=== PATIENT | male | born 1940 | race Caucasian/White ===

== ENCOUNTER → 2018-03-09 13:38 | Outpatient (CLI) | payer MEDICARE, OTHER, SELFPAY ==
[2018-03-09 14:04] LABS: Add Manual Diff / Slide Review NO; Basophils Percent Auto 0.8 % (0-2); Eosinophils Percent Auto 5.5 % (2-4); Hematocrit 46.9 % (41-53); Hemoglobin 15.7 g/dL (13.5-17.5); Lymphocytes Percent Auto 24.7 % (25-40); Mean Corpuscular HGB Conc 33.6 % (30-36); Mean Corpuscular Hemoglobin 29.9 PG (26-34); Mean Corpuscular Volume 89.1 fL (80-100); Monocytes Percent Auto 6.4 % (3-14); Neutrophils Absolute Auto 4300 /uL (3000-5900); Neutrophils Percent Auto 62.6 % (50-75); Platelet Count 173 X10^3/uL (150-400); Red Blood Cell Count 5.26 X10^6/uL (4.5-5.9); Red Cell Distribution Width 13.9 % (11.6-14.8); White Blood Cell Count 6.9 X10^3/uL (4.5-11.0)
[2018-03-09 14:06] LABS: Hemoglobin A1C% w Est Avg Glu 6.8 % (4.0-6.0)
[2018-03-09 14:12] LABS: Alanine Aminotransferase 24 IU/L (21-72); Albumin 4.1 g/dL (3.5-5.0); Albumin Globulin Ratio 1.4 (1.0-2.8); Alkaline Phosphatase 51 U/L (38-126); Aspartate Aminotransferase 17 IU/L (17-59); Bilirubin Total 0.8 mg/dL (0.2-1.3); Blood Urea Nitrogen 14 mg/dL (9-20); Calcium 8.9 mg/dL (8.4-10.2); Carbon Dioxide 29 mmol/L (22-32); Chloride 102 mmol/L (98-107); Estimated Glomerular Filt Rate > 60.0 mL/min (>60); Globulin 2.9 g/dL (1.7-4.1); Glucose 124 mg/dL (80-110); HEMOLYSIS 18 (0-50); Potassium 4.5 mmol/L (3.4-5.1); Sodium 140 mmol/L (137-145)
[2018-03-09 14:27] LABS: Free T4, Direct Thyroxine 1.29 ng/dL (0.78-2.19)
[2018-03-09 14:41] LABS: Thyroid Stimulating Hormone 3.47 uIU/mL (0.47-4.68)
[2018-03-09 15:44] LABS: Creatinine Urine Random 147.5 mg/dL
[2018-03-09 15:46] LABS: Microalbumi Creatinin Ratio Ur 16.2 ug/mg CR (<30); Microalbumin Urine Random 2.4 mg/dL (0-1.6)
== END ==
PROVIDERS: PCP Family Medicine; Visit Provider Family Medicine
DX: I10 Essential (primary) hypertension (principal); E03.9 Hypothyroidism, unspecified; E11.9 Type 2 diabetes mellitus without complications
CPT/HCPCS: 36415; 80053; 82043; 82570; 83036; 84439; 84443; 85025

== ENCOUNTER 2019-04-29 15:13 | Inpatient (IN) | payer MEDICARE, SELFPAY ==
[2019-04-29] VITALS (7 sets, daily range): BP systolic 137–189; BP diastolic 45–108; PULSE 65–76; RESP 14–22; TEMP 36.5; O2SAT 94–100; BMI 32.1
--- NOTE | 2019-04-29 15:20 | DI.RAD.S_ITS ---
PROCEDURE: XR RIBS RT MIN 3V W CXR 1V INDICATIONS: Fall, Rib pain TECHNIQUE: 2 views of the right ribs were acquired, along with a single view chest. COMPARISON: None. FINDINGS: Surgical changes and devices: None. Small right pneumothorax is noted. There is extensive subcutaneous right and an indwelling chest wall soft tissue gas extending to the base of neck Minimally displaced lateral right ninth rib fracture. No pleural effusion. Elsewhere, no acute consolidation. Scattered atelectasis. Right shoulder joint degeneration and calcific tendinitis. IMPRESSION: Lateral right ninth rib fracture Small right pneumothorax. Critical findings were personally telephoned and discussed with Dr. Hernandez in the emergency department at 1600 hours 04/29/19. Dictated by: Evaristo Canchola M.D. on 04/29/2019 at 15:56 Approved by: Evaristo Canchola M.D. on 04/29/2019 at 16:03
[2019-04-29 16:19] LABS: Add Manual Diff / Slide Review NO; Basophils Absolute Auto 100 /uL (0-100); Basophils Percent Auto 0.4 % (0-2); Eosinophils Absolute Auto 200 /uL (0-450); Eosinophils Percent Auto 1.5 % (2-4); Hematocrit 44.8 % (41-53); Lymphocytes Absolute Auto 1200 /uL (1100-4500); Lymphocytes Percent Auto 9.2 % (25-40); Mean Corpuscular HGB Conc 33.5 % (30-36); Mean Corpuscular Hemoglobin 30.2 PG (26-34); Mean Corpuscular Volume 90.2 fL (80-100); Monocytes Absolute Auto 500 /uL (0-900); Monocytes Percent Auto 3.5 % (3-14); Neutrophils Absolute Auto 11100 /uL (1500-7000); Neutrophils Percent Auto 85.4 % (50-75); Platelet Count 181 X10^3/uL (150-400); Red Blood Cell Count 4.97 X10^6/uL (4.5-5.9)
[2019-04-29 16:23] LABS: Prothrombin Time 11.2 SECONDS (10.1-12.7)
[2019-04-29 16:25] LABS: PTT Partial Thromboplastin Tim 26 SECONDS (26.4-36.2)
--- NOTE | 2019-04-29 16:26 | ED.FALL ---
HPI - Fall <ROBERTO Bassett - Last Filed: 04/29/19 22:32> General Chief Complaint: Fall Stated Complaint: Fell off chair Time Seen by Provider: 04/29/19 15:24 Source: patient and EMS Mode of arrival: EMS Limitations: no limitations History of Present Illness HPI Narrative: This is a 79-year-old gentleman, prior smoker, who presents to ED with significant other via ambulance complain of right-sided upper body/chest discomfort after he sustained a fall at 2:00 p.m.. Patient states he fell in the garage on a carpeted concrete area when he turned quickly while on a high stool after he had worked on a computer on R side of upper body. Patient denies hitting his head. Patient denies headache, vision change, weakness to extremities, mid cervical tenderness, tingling numbness to his extremities. Patient states had severe pain on his right side of chest after the fall which improved efficacy at this time. Denies short of breath or difficulty breathing. Patient takes baby aspirin daily and at times takes full dose of aspirin. Most of the history was obtained and informed by the patient's significant other. Related Data Home Medications Medication Instructions Recorded Confirmed aspirin 325 mg tablet 325 mg PO DAILY 02/23/18 04/29/19 naproxen sodium [Aleve] 220 mg PO .ONCE 04/29/19 04/29/19 simvastatin 40 mg PO BEDTIME 04/29/19 04/29/19 Previous Rx's Medication Instructions Recorded metoprolol tartrate 25 mg tablet 50 mg PO BID #360 tab 03/01/18 Glucose: Test Strips #100 each 03/02/18 levothyroxine 75 mcg tablet 75 mcg PO QAM #90 tab 12/08/18 acetaminophen [Tylenol] 650 mg PO QID PRN #60 cap 04/30/19 ibuprofen 800 mg PO Q6H PRN #60 tab 04/30/19 tramadol 50 mg PO Q6H PRN #30 tab 04/30/19 Allergies Allergy/AdvReac Type Severity Reaction Status Date / Time atorvastatin [ATORVASTATIN] Allergy Unknown Verified 12/08/18 14:31 Review of Systems <ROBERTO Bassett - Last Filed: 04/29/19 22:32> Review of Systems Narrative: General: Denies fever, chills, fatigue, malaise, sweats. HEENT: Denies sinus pain, ear pain, sore throat, difficulty swallowing, dizziness. Respiratory: Denies dyspnea, cough, wheezing, hemoptysis, sputum. Cardiovascular: Denies chest pain, palpitations, orthopnea, edema. Gastrointestinal: Denies nausea, vomiting, abdominal pain, diarrhea, constipation, melena. : Denies dysuria, frequency, incontinence, hematuria, urinary retention. Musculoskeletal: See HPI Skin: Denies rash, skin lesions, or other. Neurologic: Denies weakness, headache, numbness, change in speech, confusion, seizures, incoordination. Psychiatric: No concerning psychosocial issues. 12-point review of systems is negative except for those stated above. Patient History <ROBERTO Bassett - Last Filed: 04/29/19 22:32> Medical History Acquired hypothyroidism (Chronic 05/15/16) Arm fracture, right (Resolved 01/2013) Cataracts, bilateral (Acute) Clavicle fracture (Resolved) Diabetes (Chronic) Essential hypertension (Chronic 05/15/16) Hyperlipemia (Chronic) Hypertension (Chronic) Hypothyroidism (Chronic) Macular degeneration (Chronic) Myocardial ischemia (Resolved 2010) Onychodystrophy (Chronic) Peripheral vascular disease (Chronic 12/2014) Pure hypercholesterolemia (Chronic 05/15/16) Stroke (Chronic) Type 2 diabetes mellitus without complication, without long-term current use of insulin (Chronic 05/15/16) Surgical History History of open reduction and internal fixation (ORIF) procedure (Resolved) Family History Father Hypertension Mother Hypertension Social History household members: significant other Smoking Status: Former smoker alcohol intake: never Exam <ROBERTO Bassett - Last Filed: 04/29/19 22:32> Narrative Exam Narrative: GEN: Alert, oriented x 3, well appearing and nourished, and in no acute distress. Head: Normal cephalic, atraumatic. No scalp or temporal tenderness, step-offs, palpable mass or rash. EYES: Pupils are equal, round, and reactive to light and accommodation. Extraocular muscles are intact bilaterally. There is no subconjunctival hemorrhage, exudate and sclera non-icteric. ENT: Bilateral auditory canals and tympanic membranes clear. Hearing grossly intact. Nose without bleeding, purulent discharge or deviation. Facial sinuses nontender to palpate. Mucous membrane moist, no mucosal lesion. Throat without erythema, tonsillar hypertrophy or exudate. Uvula in midline, airway patent. Neck: Mild edema to right-sided neck. Trachea in midline, no step-offs, no mid cervical tenderness to palpate. No JVD without lymphadenopathy. No masses or thyroid megaly. Supple, non-tender and no meningeal signs. CARDIAC: Normal regular rate and rhythm without murmurs, gallops, or rubs. No chest wall tenderness. No peripheral edema, cyanosis or pallor. Capillary refill is less than 2 seconds. RESPIRATORY: Right lateral lower ribs pain to palpate. Lungs are clear to auscultate bilaterally. No cough, wheezes, rales, or rhonchi. No stridor, respiratory distress, increase work of breathing, or accessary muscle used. ABD: Abdomen soft, nontender and non-distended. No guarding or rebound tenderness to palpate. Bowel sounds are normal in all 4 quadrants. There is no palpable masses or organomegaly. EXT: Full painless ROM of all extremities with no loss of sensation, strength, effusion or edema. SKIN: Warm, dry, normal color for patient. No erythema, lesions or rash over visible areas. BACK: Nontender without deformity or crepitance. No flank tenderness. NEUROLOGICAL: Noted tremor on his upper extremities and neck. Alert and oriented to place, time and person. Sensation and motor function intact bilaterally. No facial droops, dysphasia. PSYCHIATRIC: No abnormal affect or abnormal behaviors noted during the examination. Initial Vital Signs Initial Vital Signs: Vital Signs Temperature 97.7 F 04/29/19 15:18 Pulse Rate 67 04/29/19 15:18 Respiratory Rate 22 04/29/19 15:18 Blood Pressure 137/108 H 04/29/19 15:18 Pulse Oximetry 97 04/29/19 15:18 <Zay Hernandez DO - Last Filed: 05/02/19 07:04> Initial Vital Signs Initial Vital Signs: Vital Signs Temperature 97.7 F 10/25/19 15:18 Pulse Rate 67 04/29/19 15:18 Respiratory Rate 22 04/29/19 15:18 Blood Pressure 137/108 H 04/29/19 15:18 Pulse Oximetry 97 04/29/19 15:18 Scores <[facility] Filed: 04/29/19 22:32> GCS Nakul coma scale eye opening: Spontaneous Nakul coma scale verbal response: Orientated Nakul coma scale motor response: Obey commands Nakul coma scale total score: 15 Nexus Score for C-Spine Focal Neurologic deficit present: No Midline spinal tenderness present: No Altered level of conciousness present: No Intoxication present: No Distracting Injury Present: Yes Nexus Criteria for C-spine: 1 Course <[facility] Filed: 04/29/19 22:32> Orders Ordered: Discontinued Medications Acetaminophen (Tylenol) 650 mg PO Q6HR PRN PRN Reason: As Needed for Fever/Mild Pain Enoxaparin Sodium (Lovenox) 40 mg SUBCUT DAILY [facility] Admin: 05/01/19 09:12 Dose: 40 mg Documented by: Admin: 04/30/19 08:56 Dose: 40 mg Documented by: GIAN Gabapentin (Neurontin) 100 mg PO TID [facility] Admin: 05/01/19 09:12 Dose: 100 mg Documented by: Admin: 04/30/19 20:08 Dose: 100 mg Documented by: Admin: 04/30/19 14:56 Dose: Not Given Documented by: Admin: 04/30/19 08:57 Dose: 100 mg Documented by: Admin: 04/29/19 20:53 Dose: 100 mg Documented by: MAE Ibuprofen (Advil) 600 mg PO Q6HR [facility] Last Admin: 05/01/19 12:21 Dose: 600 mg Documented by: Admin: 05/01/19 06:05 Dose: 600 mg Documented by: Admin: 05/01/19 00:27 Dose: Not Given Documented by: Admin: 04/30/19 20:07 Dose: 600 mg Documented by: Admin: 04/30/19 12:08 Dose: 600 mg Documented by: Admin: 04/30/19 05:41 Dose: 600 mg Documented by: Admin: 04/30/19 00:25 Dose: Not Given Documented by: DAILY Levothyroxine Sodium (Synthroid) 75 mcg PO 0600 [facility] Last Admin: 05/01/19 06:05 Dose: 75 mcg Documented by: Admin: 04/30/19 05:41 Dose: 75 mcg Documented by: DAILY Lidocaine (Lidoderm) 1 each TOP NOW ONE Stop: 04/29/19 17:53 Last Admin: 04/29/19 18:05 Dose: 1 each Documented by: VITO Lidocaine (Lidoderm) 1 each TOP DAILY [facility] Last Admin: 05/01/19 09:13 Dose: 1 each Documented by: Admin: 04/30/19 08:56 Dose: 1 each Documented by: GIAN Metoprolol Tartrate (Lopressor) 50 mg PO BID [facility] Last Admin: 05/01/19 09:13 Dose: 50 mg Documented by: Admin: 04/30/19 20:08 Dose: 50 mg Documented by: Admin: 04/30/19 08:56 Dose: 50 mg Documented by: Admin: 04/29/19 20:53 Dose: 50 mg Documented by: MAE Morphine Sulfate (Morphine) 2 mg IV Q2HR PRN PRN Reason: Pain, Moderate (4-6) Stop: 04/29/19 23:59 Last Admin: 04/29/19 18:10 Dose: 2 mg Documented by: VITO Ondansetron HCl (Zofran) 4 mg IV Q6HR PRN PRN Reason: Nausea And Vomiting Stop: 04/29/19 23:59 Last Admin: 04/29/19 18:10 Dose: 4 mg Documented by: VITO Oxycodone HCl (Percolone) 5 mg PO Q6HR PRN PRN Reason: Pain, Moderate (4-6) Last Admin: 04/30/19 04:29 Dose: 5 mg Documented by: Admin: 04/29/19 22:02 Dose: 5 mg Documented by: MAE Simvastatin (Zocor) 40 mg PO BEDTIME [facility] Last Admin: 04/30/19 20:08 Dose: 40 mg Documented by: Admin: 04/29/19 20:53 Dose: 40 mg Documented by: MAE Consultations Consultation #1: Dr. Hyatt-modified trauma, 1 R rib fracture and Pneumonthorax 10% with subcue emphysema on R neck and R side chest Time: 16:29 Vital Signs Vital signs: Vital Signs - 8 hr 04/29/19 15:18 04/29/19 16:19 04/29/19 17:03 Temperature 97.7 F Pulse Rate 67 70 65 Respiratory Rate 22 18 18 Blood Pressure 137/108 H Blood Pressure [Right Arm] 180/45 H 177/58 H Pulse Oximetry 97 99 100 04/29/19 17:30 04/29/19 18:00 04/29/19 19:00 Temperature 97.7 F Pulse Rate 74 70 76 Respiratory Rate 15 14 20 Blood Pressure 182/55 H Blood Pressure [Right Arm] 189/56 H 179/54 H Pulse Oximetry 100 100 100 <Zay Hernandez DO - Last Filed: 05/02/19 07:04> Orders Ordered: Discontinued Medications Acetaminophen (Tylenol) 650 mg PO Q6HR PRN PRN Reason: As Needed for Fever/Mild Pain Enoxaparin Sodium (Lovenox) 40 mg SUBCUT DAILY [facility] Last Admin: 05/01/19 09:12 Dose: 40 mg Documented by: Admin: 04/30/19 08:56 Dose: 40 mg Documented by: GIAN Gabapentin (Neurontin) 100 mg PO TID [facility] Last Admin: 05/01/19 09:12 Dose: 100 mg Documented by: Admin: 04/30/19 20:08 Dose: 100 mg Documented by: Admin: 04/30/19 14:56 Dose: Not Given Documented by: Admin: 04/30/19 08:57 Dose: 100 mg Documented by: Admin: 04/29/19 20:53 Dose: 100 mg Documented by: MAE Ibuprofen (Advil) 600 mg PO Q6HR [facility] Last Admin: 05/01/19 12:21 Dose: 600 mg Documented by: Admin: 05/01/19 06:05 Dose: 600 mg Documented by: Admin: 05/01/19 00:27 Dose: Not Given Documented by: Admin: 04/30/19 20:07 Dose: 600 mg Documented by: Admin: 04/30/19 12:08 Dose: 600 mg Documented by: Admin: 04/30/19 05:41 Dose: 600 mg Documented by: Admin: 04/30/19 00:25 Dose: Not Given Documented by: DAILY Levothyroxine Sodium (Synthroid) 75 mcg PO 0600 [facility] Last Admin: 05/01/19 06:05 Dose: 75 mcg Documented by: Admin: 04/30/19 05:41 Dose: 75 mcg Documented by: DAILY Lidocaine (Lidoderm) 1 each TOP NOW ONE Stop: 04/29/19 17:53 Last Admin: 04/29/19 18:05 Dose: 1 each Documented by: VITO Lidocaine (Lidoderm) 1 each TOP DAILY [facility] Last Admin: 05/01/19 09:13 Dose: 1 each Documented by: Admin: 04/30/19 08:56 Dose: 1 each Documented by: GIAN Metoprolol Tartrate (Lopressor) 50 mg PO BID [facility] Last Admin: 05/01/19 09:13 Dose: 50 mg Documented by: Admin: 04/30/19 20:08 Dose: 50 mg Documented by: Admin: 04/30/19 08:56 Dose: 50 mg Documented by: Admin: 04/29/19 20:53 Dose: 50 mg Documented by: MAE Morphine Sulfate (Morphine) 2 mg IV Q2HR PRN PRN Reason: Pain, Moderate (4-6) Stop: 04/29/19 23:59 Last Admin: 04/29/19 18:10 Dose: 2 mg Documented by: VITO Ondansetron HCl (Zofran) 4 mg IV Q6HR PRN PRN Reason: Nausea And Vomiting Stop: 04/29/19 23:59 Last Admin: 04/29/19 18:10 Dose: 4 mg Documented by: VITO Oxycodone HCl (Percolone) 5 mg PO Q6HR PRN PRN Reason: Pain, Moderate (4-6) Last Admin: 04/30/19 04:29 Dose: 5 mg Documented by: Admin: 04/29/19 22:02 Dose: 5 mg Documented by: MAE Simvastatin (Zocor) 40 mg PO BEDTIME [facility] Last Admin: 04/30/19 20:08 Dose: 40 mg Documented by: Admin: 04/29/19 20:53 Dose: 40 mg Documented by: MAE Vital Signs Vital signs: Vital Signs - 8 hr 04/29/19 15:18 04/29/19 16:19 04/29/19 17:03 Temperature 97.7 F Pulse Rate 67 70 65 Respiratory Rate 22 18 18 Blood Pressure 137/108 H Blood Pressure [Right Arm] 180/45 H 177/58 H Pulse Oximetry 97 99 100 04/29/19 17:30 04/29/19 18:00 04/29/19 19:00 Temperature 97.7 F Pulse Rate 74 70 76 Respiratory Rate 15 14 20 Blood Pressure 182/55 H Blood Pressure [Right Arm] 189/56 H 179/54 H Pulse Oximetry 100 100 100 MDM - Fall <Rakan CotterROBERTO - Last Filed: 04/29/19 22:32> Differential Diagnosis Differential diagnosis: Likely other (Chest contusion, pneumothorax, rib fracture) Medical Records Attestation: I reviewed the patient's medical records. Lab Data Attestation: I reviewed the patient's lab results. Result diagrams: 04/30/19 11:37 04/29/19 16:10 Labs: Lab Results 04/29/19 04/29/19 04/29/19 Range/Units 16:10 16:10 16:10 WBC 13.0 H (4.5-11.0) X10^3/uL RBC 4.97 (4.5-5.9) X10^6/uL Hgb 15.0 (13.5-17.5) g/dL Hct 44.8 (41-53) % MCV 90.2 (80-100) fL MCH 30.2 (26-34) PG MCHC 33.5 (30-36) % RDW 14.0 (11.6-14.8) % Plt Count 181 (150-400) X10^3/uL Neut % (Auto) 85.4 H (50-75) % Lymph % (Auto) 9.2 L (25-40) % [place] % (Auto) 3.5 (3-14) % Eos % (Auto) 1.5 L (2-4) % Baso % (Auto) 0.4 (0-2) % Neut # (Auto) 18450 H (8990-0476) /uL Lymph # (Auto) 1200 (7286-1635) /uL [place] # (Auto) 500 (0-900) /uL Eos # (Auto) 200 (0-450) /uL Baso # (Auto) 100 (0-100) /uL PT 11.2 (10.1-12.7) SECONDS INR 1.0 (0.9-1.3) APTT 26 L (26.4-36.2) SECONDS Sodium 137 (137-145) mmol/L Potassium 4.2 (3.4-5.1) mmol/L Chloride 101 (98-107) mmol/L Carbon Dioxide 25 (22-32) mmol/L BUN 15 (9-20) mg/dL Creatinine 1.00 (0.66-1.25) mg/dL Estimated GFR > 60.0 (>60) mL/min BUN/Creatinine Ratio 15.0 (6-22) Glucose 209 H (80-110) mg/dL Calcium 8.8 (8.4-10.2) mg/dL Total Bilirubin 0.8 (0.2-1.3) mg/dL AST 25 (17-59) IU/L ALT 23 (21-72) IU/L Alkaline Phosphatase 66 (38-126) U/L Total Protein 7.2 (6.3-8.2) g/dL Albumin 4.1 (3.5-5.0) g/dL Globulin 3.1 (1.7-4.1) g/dL Albumin/Globulin Ratio 1.3 (1.0-2.8) Lipase 197 (23-300) U/L Ethyl Alcohol < 10 ( - 10) mg/dL Blood Type Antibody Screen 04/29/19 04/29/19 Range/Units 16:10 18:40 WBC 17.9 H (4.5-11.0) X10^3/uL RBC 4.84 (4.5-5.9) X10^6/uL Hgb 14.6 (13.5-17.5) g/dL Hct 43.6 (41-53) % MCV 90.2 (80-100) fL MCH 30.2 (26-34) PG MCHC 33.5 (30-36) % RDW 14.1 (11.6-14.8) % Plt Count 176 (150-400) X10^3/uL Neut % (Auto) 90.4 H (50-75) % Lymph % (Auto) 4.9 L (25-40) % [place] % (Auto) 4.3 (3-14) % Eos % (Auto) 0.2 L (2-4) % Baso % (Auto) 0.2 (0-2) % Neut # (Auto) 63655 H (6810-0665) /uL Lymph # (Auto) 900 L (7756-3568) /uL [place] # (Auto) 800 (0-900) /uL Eos # (Auto) 0 (0-450) /uL Baso # (Auto) 0 (0-100) /uL PT (10.1-12.7) SECONDS INR (0.9-1.3) APTT (26.4-36.2) SECONDS Sodium (137-145) mmol/L Potassium (3.4-5.1) mmol/L Chloride (98-107) mmol/L Carbon Dioxide (22-32) mmol/L BUN (9-20) mg/dL Creatinine (0.66-1.25) mg/dL Estimated GFR (>60) mL/min BUN/Creatinine Ratio (6-22) Glucose (80-110) mg/dL Calcium (8.4-10.2) mg/dL Total Bilirubin (0.2-1.3) mg/dL AST (17-59) IU/L ALT (21-72) IU/L Alkaline Phosphatase (38-126) U/L Total Protein (6.3-8.2) g/dL Albumin (3.5-5.0) g/dL Globulin (1.7-4.1) g/dL Albumin/Globulin Ratio (1.0-2.8) Lipase (23-300) U/L Ethyl Alcohol ( - 10) mg/dL Blood Type B Positive Antibody Screen Negative Imaging Data Chest x-ray: Radiologist's impression: [address] [address] XRay Report Signed Patient: Ric Perry EMR#: [id number] : 1940Acct:[id number] Age/Sex: 79 / MDate of Service: 04/29/19 Loc: ED Accession Number: [id number] Procedure: XR ribs RT min 3V w CXR1V Ordering Provider: Zay Hernandez D.O. PROCEDURE: XR RIBS RT MIN 3V W CXR 1V INDICATIONS: Fall, Rib pain TECHNIQUE: 2 views of the right ribs were acquired, along with a single view chest. COMPARISON: None. FINDINGS: Surgical changes and devices: None. Small right pneumothorax is noted. There is extensive subcutaneous right and an indwelling chest wall soft tissue gas extending to the base of neck Minimally displaced lateral right ninth rib fracture. No pleural effusion. Elsewhere, no acute consolidation. Scattered atelectasis. Right shoulder joint degeneration and calcific tendinitis. IMPRESSION: Lateral right ninth rib fracture Small right pneumothorax. Critical findings were personally telephoned and discussed with Dr. Hernandez in the emergency department at 1600 hours 04/29/19. Dictated by: Evaristo Canchola M.D. on 04/29/2019 at 15:56 Approved by: Evaristo Canchola M.D. on 04/29/2019 at 16:03 ECG Data Attestation: I personally reviewed and interpreted this ECG as follows: Interpretation: Sinus rhythm rate at 66. Non specific T wave abnormalty. The significant changes from previous EKG. MDM Narrative Medical decision making narrative: This is a 79-year-old gentleman who was brought in by and EMS after he sustained a fall off a high stool and landed on the right side of his upper body. Patient/significant other reports the fall was accidental when he turned too quickly while sitting on a chair. Patient takes daily baby aspirin and occasional full dose of aspirin. Patient has significant pain at the time of injury on his right side chest/ribs. Patient denied short of breath, dizziness, or chest pain prior falling or after the fall. Chest x-ray was obtained any showed a minimally displaced lateral right 9th rib fracture. She had small right pneumothorax of about 10% according to radiologist's phone report to Dr. Hernandez. Patient also had small subcutaneous emphysema on his right-sided neck and right-sided upper body. X-ray also showed scattered atelectasis. Oxygen by nasal cannula at 4 L was administered as the treatment for small pneumothorax. Modified trauma was called and Dr. Hyatt was consulted with the findings. EKG showed normal sinus rhythm rate at 66 with nonspecific T wave abnormaltywithout significant change from previous EKG. Head and neck CT was not obtained due to patient did not hit his head, is alert oriented. He denied loss of conscious, headache, vision change, nausea or vomiting. Patient and spouse declined pain medication several times, although patient complains of pain with movement. Several times patient and significant other was informed that this is very likely due to rib fracture and offered lidocaine patch. There was leukocytosis of 17.9 with elevated neutrophil as 90.4 with unremarkable chemistry. At this time, etiology for leukocytosis is not clear. Dr. Hyatt presents to ED for patient evaluation and he kindly accepted the patient's care. <Zay Hernandez, DO - Last Filed: 05/02/19 07:04> Lab Data Labs: Lab Results 04/29/19 04/29/19 04/29/19 Range/Units 16:10 16:10 16:10 WBC 13.0 H (4.5-11.0) X10^3/uL RBC 4.97 (4.5-5.9) X10^6/uL Hgb 15.0 (13.5-17.5) g/dL Hct 44.8 (41-53) % MCV 90.2 (80-100) fL MCH 30.2 (26-34) PG MCHC 33.5 (30-36) % RDW 14.0 (11.6-14.8) % Plt Count 181 (150-400) X10^3/uL Neut % (Auto) 85.4 H (50-75) % Lymph % (Auto) 9.2 L (25-40) % [place] % (Auto) 3.5 (3-14) % Eos % (Auto) 1.5 L (2-4) % Baso % (Auto) 0.4 (0-2) % Neut # (Auto) 07074 H (1499-4247) /uL Lymph # (Auto) 1200 (4188-6430) /uL [place] # (Auto) 500 (0-900) /uL Eos # (Auto) 200 (0-450) /uL Baso # (Auto) 100 (0-100) /uL PT 11.2 (10.1-12.7) SECONDS INR 1.0 (0.9-1.3) APTT 26 L (26.4-36.2) SECONDS Sodium 137 (137-145) mmol/L Potassium 4.2 (3.4-5.1) mmol/L Chloride 101 (98-107) mmol/L Carbon Dioxide 25 (22-32) mmol/L BUN 15 (9-20) mg/dL Creatinine 1.00 (0.66-1.25) mg/dL Estimated GFR > 60.0 (>60) mL/min BUN/Creatinine Ratio 15.0 (6-22) Glucose 209 H (80-110) mg/dL Calcium 8.8 (8.4-10.2) mg/dL Total Bilirubin 0.8 (0.2-1.3) mg/dL AST 25 (17-59) IU/L ALT 23 (21-72) IU/L Alkaline Phosphatase 66 (38-126) U/L Total Protein 7.2 (6.3-8.2) g/dL Albumin 4.1 (3.5-5.0) g/dL Globulin 3.1 (1.7-4.1) g/dL Albumin/Globulin Ratio 1.3 (1.0-2.8) Lipase 197 (23-300) U/L Ethyl Alcohol < 10 ( - 10) mg/dL Blood Type Antibody Screen 04/29/19 04/29/19 Range/Units 16:10 18:40 WBC 17.9 H (4.5-11.0) X10^3/uL RBC 4.84 (4.5-5.9) X10^6/uL Hgb 14.6 (13.5-17.5) g/dL Hct 43.6 (41-53) % MCV 90.2 (80-100) fL MCH 30.2 (26-34) PG MCHC 33.5 (30-36) % RDW 14.1 (11.6-14.8) % Plt Count 176 (150-400) X10^3/uL Neut % (Auto) 90.4 H (50-75) % Lymph % (Auto) 4.9 L (25-40) % [place] % (Auto) 4.3 (3-14) % Eos % (Auto) 0.2 L (2-4) % Baso % (Auto) 0.2 (0-2) % Neut # (Auto) 83606 H (2256-6490) /uL Lymph # (Auto) 900 L (6815-1137) /uL [place] # (Auto) 800 (0-900) /uL Eos # (Auto) 0 (0-450) /uL Baso # (Auto) 0 (0-100) /uL PT (10.1-12.7) SECONDS INR (0.9-1.3) APTT (26.4-36.2) SECONDS Sodium (137-145) mmol/L Potassium (3.4-5.1) mmol/L Chloride (98-107) mmol/L Carbon Dioxide (22-32) mmol/L BUN (9-20) mg/dL Creatinine (0.66-1.25) mg/dL Estimated GFR (>60) mL/min BUN/Creatinine Ratio (6-22) Glucose (80-110) mg/dL Calcium (8.4-10.2) mg/dL Total Bilirubin (0.2-1.3) mg/dL AST (17-59) IU/L ALT (21-72) IU/L Alkaline Phosphatase (38-126) U/L Total Protein (6.3-8.2) g/dL Albumin (3.5-5.0) g/dL Globulin (1.7-4.1) g/dL Albumin/Globulin Ratio (1.0-2.8) Lipase (23-300) U/L Ethyl Alcohol ( - 10) mg/dL Blood Type B Positive Antibody Screen Negative Discharge Plan Departure Patient Disposition: Admitted as Observation Clinical Impression: Pneumothorax Qualifiers: Pneumothorax type: traumatic Encounter type: initial encounter Qualified Code(s): S27.0XXA - Traumatic pneumothorax, initial encounter Closed rib fracture Qualifiers: Encounter type: initial encounter Rib fracture type: single rib Laterality: right Qualified Code(s): S22.31XA - Fracture of one rib, right side, initial encounter for closed fracture Fall Qualifiers: Encounter type: initial encounter Qualified Code(s): W19.XXXA - Unspecified fall, initial encounter Discharge Date/Time: 04/29/19 18:51 Admit Date/Time: 04/29/19 19:00 Admit Provider: Be Hyatt <Zay Hernandez DO - Last Filed: 05/02/19 07:04> Sign Out Provider Sign Out Attestation: I was available for consultation during this patient's emergency department visit. This chart is signed by myself for administrative purposes only. I did not have direct contact with this patient during this visit. They were seen independently by the APC.
[2019-04-29 16:30] LABS: Alanine Aminotransferase 23 IU/L (21-72); Albumin 4.1 g/dL (3.5-5.0); Albumin Globulin Ratio 1.3 (1.0-2.8); Alkaline Phosphatase 66 U/L (38-126); Aspartate Aminotransferase 25 IU/L (17-59); Bilirubin Total 0.8 mg/dL (0.2-1.3); Blood Urea Nitrogen 15 mg/dL (9-20); Calcium 8.8 mg/dL (8.4-10.2); Carbon Dioxide 25 mmol/L (22-32); Chloride 101 mmol/L (98-107); Estimated Glomerular Filt Rate > 60.0 mL/min (>60); Ethanol (ETOH) < 10 mg/dL; Globulin 3.1 g/dL (1.7-4.1); Glucose 209 mg/dL (80-110); HEMOLYSIS 16 (0-50); Lipase 197 U/L (23-300); Potassium 4.2 mmol/L (3.4-5.1); Sodium 137 mmol/L (137-145); Total Protein 7.2 g/dL (6.3-8.2)
[2019-04-29] MEDS: LIDOCAINE PATCH 1 EACH ADH..PATCH TOP (18:05)
[2019-04-29] MEDS: MORPHINE 2 MG/ML INJ IV (18:10)
[2019-04-29] MEDS: ONDANSETRON 4 MG/2 ML INJ IV (18:10)
--- NOTE | 2019-04-29 18:20 | P.HP_ITS ---
History of Present Illness History of Present Illness Date Patient Seen: 04/29/19 Time Patient Seen: 18:20 Chief complaint: Fell off chair Narrative: This is 70 year old male who sustained a ground level fall today. He fell off a stool at home landing onto his right chest. Did not strike his head had no loss of consciousness. His not on anticoagulation. He noticed some right-sided chest pain and then presented to the emergency room for evaluation. Chest x-ray demonstrates 1 right-sided rib fracture and a small pneumothorax. Complaint of right pleuritic pain with deep inspiration. Speaking in normal sentences. Medical history is significant for history of stroke hypertension hypothyroidism and diet controlled diabetes. Patient History Medical History Acquired hypothyroidism (Chronic 05/15/16) Arm fracture, right (Resolved 01/2013) Cataracts, bilateral (Acute) Clavicle fracture (Resolved) Diabetes (Chronic) Essential hypertension (Chronic 05/15/16) Hyperlipemia (Chronic) Hypertension (Chronic) Hypothyroidism (Chronic) Macular degeneration (Chronic) Myocardial ischemia (Resolved 2010) Onychodystrophy (Chronic) Peripheral vascular disease (Chronic 12/2014) Pure hypercholesterolemia (Chronic 05/15/16) Stroke (Chronic) Type 2 diabetes mellitus without complication, without long-term current use of insulin (Chronic 05/15/16) Surgical History History of open reduction and internal fixation (ORIF) procedure (Resolved) Family & Social History Family History Father Hypertension Mother Hypertension Tobacco & Substance use: Smoking Status Former smoker Meds Home Medications and Allergies Home Medications Medication Instructions Recorded Confirmed Type aspirin 325 mg tablet 325 mg PO DAILY 02/23/18 04/29/19 History metoprolol tartrate 25 mg tablet 50 mg PO BID #360 tab 03/01/18 04/29/19 Rx Glucose: Test Strips #100 each 03/02/18 04/29/19 Rx levothyroxine 75 mcg tablet 75 mcg PO QAM #90 tab 12/08/18 04/29/19 Rx naproxen sodium [Aleve] 220 mg PO .ONCE 04/29/19 04/29/19 History simvastatin 40 mg PO BEDTIME 04/29/19 04/29/19 History Allergies Allergy/AdvReac Type Severity Reaction Status Date / Time atorvastatin [ATORVASTATIN] Allergy Unknown Verified 12/08/18 14:31 Review of Systems Review of Systems Narrative: A complete review of systems is negative except as noted in the HPI Exam Vital Signs (past 8 hours): - 04/29/19 15:18 04/29/19 16:19 04/29/19 17:03 Temperature 97.7 F Pulse Rate 67 70 65 Respiratory Rate 22 18 18 Blood Pressure 137/108 H Blood Pressure [Right Arm] 180/45 H 177/58 H Pulse Oximetry 97 99 100 04/29/19 17:30 04/29/19 18:00 Temperature Pulse Rate 74 70 Respiratory Rate 15 14 Blood Pressure Blood Pressure [Right Arm] 189/56 H 179/54 H Pulse Oximetry 100 100 Oxygen Delivery Method Nasal Cannula Oxygen Flow Rate 4 Narrative Exam Narrative: General-no acute distress, well nourished HEENT-moist mucous membranes, no scleral icterus Neck-supple, scant subcutaneous oxygen Chest- non labored respirations, clear to auscultation bilaterally Cardiac-regular rate no peripheral edema Abdomen-soft, nontender, non distended Extremities-warm, well perfused Neurological-alert and oriented Objective Labs Result Diagrams: 04/29/19 16:10 04/29/19 16:10 Labs: Laboratory Results - last 24 hr 04/29/19 04/29/19 04/29/19 16:10 16:10 16:10 WBC 13.0 H RBC 4.97 Hgb 15.0 Hct 44.8 MCV 90.2 MCH 30.2 MCHC 33.5 RDW 14.0 Plt Count 181 Neut % (Auto) 85.4 H Lymph % (Auto) 9.2 L [place] % (Auto) 3.5 Eos % (Auto) 1.5 L Baso % (Auto) 0.4 Neut # (Auto) 00477 H Lymph # (Auto) 1200 [place] # (Auto) 500 Eos # (Auto) 200 Baso # (Auto) 100 PT 11.2 INR 1.0 APTT 26 L Sodium 137 Potassium 4.2 Chloride 101 Carbon Dioxide 25 BUN 15 Creatinine 1.00 Estimated GFR > 60.0 BUN/Creatinine Ratio 15.0 Glucose 209 H Calcium 8.8 Total Bilirubin 0.8 AST 25 ALT 23 Alkaline Phosphatase 66 Total Protein 7.2 Albumin 4.1 Globulin 3.1 Albumin/Globulin Ratio 1.3 Lipase 197 Ethyl Alcohol < 10 Blood Type Antibody Screen 04/29/19 16:10 WBC RBC Hgb Hct MCV MCH MCHC RDW Plt Count Neut % (Auto) Lymph % (Auto) [place] % (Auto) Eos % (Auto) Baso % (Auto) Neut # (Auto) Lymph # (Auto) [place] # (Auto) Eos # (Auto) Baso # (Auto) PT INR APTT Sodium Potassium Chloride Carbon Dioxide BUN Creatinine Estimated GFR BUN/Creatinine Ratio Glucose Calcium Total Bilirubin AST ALT Alkaline Phosphatase Total Protein Albumin Globulin Albumin/Globulin Ratio Lipase Ethyl Alcohol Blood Type B Positive Antibody Screen Negative Assessment & Plan Assessment and plan (1) Pneumothorax: Current visit: Yes Status: Acute Assessment & Plan narrative: This is a 79-year-old male status post ground level fall no loss of consciousness no head strike, hemodynamically stable breathing well on 2 L of oxygen. Traumatic injuries -right pneumothorax. Small less than 10% breathing comfortably on 2 L of nasal cannula. No indication for chest tube at this time. Will repeat chest x-ray in a.m. for re-evaluation -right rib fracture-pain control with oxycodone some ibuprofen Tylenol and lidocaine patch. Admission to trauma for observation. -diabetic diet -p Lovenox and SCDs for DVT prophylaxis -PT OT evaluation -anticipate discharge home tomorrow if pneumothorax not worsened and pain is adequately controlled with oral medication.
[2019-04-29 19:35] LABS: Add Manual Diff / Slide Review NO; Basophils Absolute Auto 0 /uL (0-100); Basophils Percent Auto 0.2 % (0-2); Eosinophils Absolute Auto 0 /uL (0-450); Eosinophils Percent Auto 0.2 % (2-4); Hematocrit 43.6 % (41-53); Hemoglobin 14.6 g/dL (13.5-17.5); Lymphocytes Absolute Auto 900 /uL (1100-4500); Lymphocytes Percent Auto 4.9 % (25-40); Mean Corpuscular HGB Conc 33.5 % (30-36); Mean Corpuscular Hemoglobin 30.2 PG (26-34); Mean Corpuscular Volume 90.2 fL (80-100); Monocytes Absolute Auto 800 /uL (0-900); Monocytes Percent Auto 4.3 % (3-14); Neutrophils Absolute Auto 16200 /uL (1500-7000); Neutrophils Percent Auto 90.4 % (50-75); Platelet Count 176 X10^3/uL (150-400); Red Blood Cell Count 4.84 X10^6/uL (4.5-5.9); Red Cell Distribution Width 14.1 % (11.6-14.8); White Blood Cell Count 17.9 X10^3/uL (4.5-11.0)
[2019-04-29] MEDS: METOPROLOL IR 25 MG TABLET 50 MG PO (20:53)
[2019-04-29] MEDS: GABAPENTIN 100 MG CAPSULE PO (20:53)
[2019-04-29] MEDS: SIMVASTATIN 40 MG TABLET PO (20:53)
[2019-04-29] MEDS: OXYCODONE IR 5 MG TABLET PO (22:02)
[2019-04-30] VITALS (9 sets, daily range): BP systolic 131–165; BP diastolic 59–81; PULSE 63–78; RESP 17–20; TEMP 36.4–36.9; O2SAT 94–99
[2019-04-30] MEDS: OXYCODONE IR 5 MG TABLET PO (04:29)
[2019-04-30] MEDS: LEVOTHYROXINE 75 MCG TABLET PO (05:41)
[2019-04-30] MEDS: IBUPROFEN 600 MG TABLET PO ×3 (05:41→20:07)
--- NOTE | 2019-04-30 06:00 | DI.RAD.S_ITS ---
PROCEDURE: XR CHEST 1V INDICATIONS: R pneumothorax TECHNIQUE: One view of the chest was acquired. COMPARISON: Merged with [facility], CHEST 1 VIEW, 12/11/2014, 19:47. Merged with [facility], CHEST 1 VIEW, 02/10/2011, 12:13. Merged with [facility], XR RIBS RT MIN 3V W CXR 1V, 04/29/2019, 15:37. FINDINGS: Surgical changes and devices: There is a suture seen overlying the right distal clavicle. Lungs and pleura: There is a small right-sided pneumothorax seen, which is minimally improved compared to the prior examination. No left-sided pneumothorax is seen. Low lung volumes are noted. This causes a crowded appearance to the lung markings and limits evaluation. Mediastinum: The cardiac contours are within normal limits. The aorta demonstrates calcification and tortuosity. Bones and chest wall: At least one right-sided rib fracture can be seen. Right-sided soft tissue gas is seen. No suspicious bony lesions. Age-appropriate bony degenerative changes are seen. Right shoulder calcific tendinopathy can be seen. IMPRESSION: Right-sided pneumothorax, which is decreased in size compared to the prior examination. Right-sided soft tissue gas. Right-sided rib fracture. Dictated by: Akira Yoder M.D. on 04/30/2019 at 7:01 Approved by: Akira Yoder M.D. on 04/30/2019 at 7:04
[2019-04-30] MEDS: METOPROLOL IR 25 MG TABLET 50 MG PO ×2 (08:56→20:08)
[2019-04-30] MEDS: ENOXAPARIN 40 MG/0.4 ML SYRINGE SUBCUT (08:56)
[2019-04-30] MEDS: LIDOCAINE PATCH 1 EACH ADH..PATCH TOP (08:56)
[2019-04-30] MEDS: GABAPENTIN 100 MG CAPSULE PO ×2 (08:57→20:08)
--- NOTE | 2019-04-30 09:37 | PT.IIE ---
Current Diagnoses Pneumothorax, unspecified (04/29/19) Surgical History (Last Reviewed 04/29/19 @ 18:24 by Be Hyatt MD) History of open reduction and internal fixation (ORIF) procedure (Resolved) Medical History (Last Reviewed 04/29/19 @ 18:24 by Be Hyatt MD) Acquired hypothyroidism (Chronic 05/15/16) Arm fracture, right (Resolved 01/2013) Cataracts, bilateral (Acute) Clavicle fracture (Resolved) Diabetes (Chronic) Essential hypertension (Chronic 05/15/16) Hyperlipemia (Chronic) Hypertension (Chronic) Hypothyroidism (Chronic) Macular degeneration (Chronic) Myocardial ischemia (Resolved 2010) Onychodystrophy (Chronic) Peripheral vascular disease (Chronic 12/2014) Pure hypercholesterolemia (Chronic 05/15/16) Stroke (Chronic) Type 2 diabetes mellitus without complication, without long-term current use of insulin (Chronic 05/15/16) Physical Therapy Inpatient Evaluation/Re-Eval M1 PT/OT-IP Prior Functional Status Start: 04/30/19 12:53 Freq: NEEDED Status: Active Protocol: Document 04/30/19 09:37 AB (Rec: 04/30/19 13:13 AB [id number]) Medical Review Prior Functional Status Medical History Reviewed Yes Communication able to make needs known but with confusion Mobility and Gait pt stated that he is independent with all mobilities and ambulation without AD Prior Functional Level (Other details) pt stated that he lives alone but OT called person to notify and significant other stated that she lives with him for years. Social History Household Members significant other Living Arrangements House Number of Floors (Floors) One Floor Number of Stairs To Enter/Railing? no steps to enter Home Environment Standard Height Toilet,Tub/ Shower Home Equipment Front Wheel Walker,Hand Held Shower,Grab Bars Near Toilet, Grab Bars In Shower M2 PT-IP Current Condition Start: 04/30/19 12:53 Freq: NEEDED Status: Active Protocol: Document 04/30/19 09:37 AB (Rec: 04/30/19 13:13 AB [id number]) Physical Therapy Current Condition Current Condition Evaluation Date 04/30/19 Treatment Diagnosis R 9th rib fx; pneumothorax; difficulty in walking Onset Date 04/29/19 Precautions Other Precautions falls M3 PT-IP Subjective Start: 04/30/19 12:53 Freq: NEEDED Status: Active Protocol: Document 04/30/19 09:37 AB (Rec: 04/30/19 13:13 AB [id number]) Subjective Physical Therapy Visit Type Type Initial Evaluation Visit Start Time 09:37 Visit Stop Time 10:03 Total Visit Minutes 26 Number of MUD MIXER Visits 0 Physical Therapy Visit Comments Patient Comments pt agreeable to do PT Therapy Pain Assessment Pain When Pain Assessed During Mobility Location right chest Intensity 10 Scale Used Numeric (1 - 10) Pain Management Techniques Re-positioning,Timing of Activity with Medications M4 PT-IP Mobility and Gait Start: 04/30/19 12:53 Freq: NEEDED Status: Active Protocol: Document 04/30/19 09:37 AB (Rec: 04/30/19 13:13 AB [id number]) PT-Bed Mobility Assessment Supine to Sit Supine to Sit Standby Assistance,1 Person Assistance Sit to Supine Sit to Supine Standby Assistance,1 Person Assistance PT-Transfer Assessment Sit to and From Stand Sit to and from Stand Minimal Assistance,Moderate Assistance,1 Person Assistance ,Use of Upper Extremities Equipment Transfer Assistive Device Gait Belt,Front Wheeled Walker Orthotic/Prosthetic Devices or Brace: No Transfers Transfer Destination Bed,Chair Transfer Technique pt ambulated using FWW Transfer Ability Level of Assist Minimal Assistance,Moderate Assistance,1 Person Assistance ,Use of Upper Extremities Comments Mobility Comments pt found sitting on chair. completed sit to stand from chair x 3 attempts before being able to complete task requiring min to mod A and max cues. pt ambulated ~ 12 ft to the bed using FWW min A and cues. completed bed mobility supine <>sit SBA. pt ambulated more in room using FWW and agreed to sit up on chair afterwards. positioned on chair. call light and table placed within reach. Gait Assessment Gait Gait Assistance Required: Minimum Assistance Distance (Feet) 20 Able to Maintain Weight Bearing Status Yes During Gait Assistive Devices Assistive Device Gait Belt,Front Wheeled Walker Orthotic/Prosthetic Devices or Brace: No Gait Deviations General Gait Pattern Antalgic,Decreased Stride Length,Decreased Feet Clearance,Flexed Trunk Factors Limiting Gait Function Factors Limiting Gait Function Decreased Activity Tolerance, Decreased Strength,Difficulty Following Directions,Limited Range of Motion,Pain,Poor Balance,Poor Safety Awareness Comments Gait Comments pt presents with unsteady gait with (+) LOB x 2 requiring min A for recovery. PT-Balance Assessment Sitting Balance and Reactions Static Sitting Balance Ability Good Dynamic Sitting Balance Ability Good Standing Balance and Reactions Static Standing Balance Ability Fair Dynamic Standing Balance Ability Fair Device Used FWW M5 PT-IP Objective Assessments Start: 04/30/19 12:53 Freq: NEEDED Status: Active Protocol: Document 04/30/19 09:37 AB (Rec: 04/30/19 13:13 AB [id number]) Orientation Orientation/Cognition Level of Alertness Alert Orientation Name,Age,Birthday,Place, Situation Safety Awareness Decreased Safety Awareness Memory Description Short Term Impaired,Hot Metal Charger Impaired Comments pt with confusion Gross Range of Motion Lower Extremity ROM Assessment Within Functional Limits Strength Lower Extremity Strength Assessment Bilaterally Impaired Hip 3+/5 Knee 3+/5 Muscle Tone Muscle Tone WNL Yes M6 PT-IP Treatment Start: 04/30/19 12:53 Freq: NEEDED Status: Active Protocol: Document 04/30/19 09:37 AB (Rec: 04/30/19 13:13 AB [id number]) Physical Therapy Treatment Education Education Provided Safety M7 PT-IP Assessment and Plan Start: 04/30/19 12:53 Freq: NEEDED Status: Active Protocol: Document 04/30/19 09:37 AB (Rec: 04/30/19 13:13 AB [id number]) PT Summary Assessment and Plan Potential Rehabilitation Potential Fair Status of Condition at Evaluation Evolving Summary Impairments Pain,ROM,Strength,Balance, Coordination,Sensation,Tone, Cognition,Bed Mobility, Transfers,Gait,Activity Tolerance Assessment Summary pt requiring min to mod A with transfers and min A with ambulation using FWW. pt presents with decrease activity tolerance and decrease safety awareness. pt will require 24/7 assist at home and at this time will require SNF rehab to improve strength and mobility. Goals Bed Mobility Goal Independent Transfer Goal Standby Assistance,Front Wheeled Walker Gait Goal Standby Assistance,Front Wheel Walker Gait Distance 200 Days to Meet Goals 10 Frequency of Treatment Frequency Of Treatment Once a Day Treatment Plan Physical Therapy Treatment Plan Bed Mobility Training,Transfer Training,Gait Training, Therapeutic Exercise,Balance Retraining,Discharge Planning, Hot or Cold Pack,Neuromuscular Re-ed,Coordination Retraining ,Manual Therapy Recommendations To Nursing Amount of Assist Needed 1 Person Assist Discharge Recommendations PT Discharge Recommendations Home with 24/7 Assist,Home Health,SNF Rehab Other Discharge Recommendations SNF rehab vs 24/7 assist at home / HHPT
--- NOTE | 2019-04-30 10:42 | OT.IP.TRT ---
Current Diagnoses Pneumothorax, unspecified (04/29/19) Occupational Therapy Treatment Note M2 OT-IP Current Condition Start: 04/30/19 13:00 Freq: Status: Active Protocol: Document 04/30/19 10:42 [facility] (Rec: 04/30/19 13:34 [facility] [id number]) Occupational Therapy Current Condition Current Condition Evaluation Date 04/30/19 Treatment Diagnosis GLF, rib fracture-lateral 9th, small pneumothorax, decreased mobility Diagnosis Onset Date 04/29/19 Weight Bearing Status Weight Bearing Status Weight Bear as Tolerated M3 OT- IP Subjective and Pain Start: 04/30/19 13:00 Freq: Status: Active Protocol: Document 04/30/19 10:42 [facility] (Rec: 04/30/19 13:34 [facility] [id number]) OT- Subjective Occupational Therapy Visit Type Type Initial Evaluation Visit Start Time 10:42 Visit Stop Time 11:24 Total Visit Minutes 42 Occupational Therapy Visit Comments Patient Comments Pt agreeable to do OT eval. Called pt's significant other afterwards as pt a bit confused and unable to recall if someone lives with him. Patient/Caregiver Goals Pt wanting to go home. OT Pain Assessment Pain When Pain Assessed At Rest Pain Present Pain Present Denied Pain M4 OT- IP ADL's Start: 04/30/19 13:00 Freq: Status: Active Protocol: Document 04/30/19 10:42 [facility] (Rec: 04/30/19 13:34 [facility] [id number]) OT ADL-Grooming Comments OT Grooming Comments Pt refusing to try to do grooming at this time. OT ADL-Dressing General Eval Lower Body Dressing Ability Standby Assistance Comments OT Dressing Comments Pt needing ELIEL for balance while pt able to doff /neida brief over his hips. OT ADL-Toileting General Evaluation Toileting Ability Standby Assistance Comments OT Toileting Comments While sitting on the toilet able to reach back to wipe. OT ADL-Bathing Comments OT Bathing Comments Pt not wanting to shower at this time. M5 OT- IP IADL's Start: 04/30/19 13:00 Freq: Status: Active Protocol: Document 04/30/19 10:42 [facility] (Rec: 04/30/19 13:34 [facility] [id number]) OT-Instrumental Activities of Daily Living Home Safety Awareness Home Safety Comments Pt at this time decreased home safety and was not able to identify to call 911 is case of chest pain. Pt states to call the hospital. Pt also not sure what to do in case of toilet flooding. CAlled pt's significant other and she insisted pt completely independent with needs and very sensitive to pain medications and feels that is why he is not thinking well. M6 OT- IP Functional Cognition Start: 04/30/19 13:00 Freq: Status: Active Protocol: Document 04/30/19 10:42 [facility] (Rec: 04/30/19 13:34 [facility] [id number]) Cognitive Factors Limiting Selfcare Function Cognitive Ability Level of Alertness Alert,Confusional State Patient Orientation Name,Month,Year,Situation Attention Span Ability Capable of Focused Attention, Capable of Sustained Attention Ability to Follow Commands Able to Follow One Step Commands Memory Description Short Term Impaired Safety Awareness Underestimates Need for Assistance Problem Solving Ability Unable to Identify Errors, Needs Assist to Identify Solutions Executive Function Ability Unable to Organize Plans, Unable to Remember Details Cognitive Comments Cognitive Assessment Comments Pt states at [facility] when asked where he is. Pt not able to state that his significant other lives with him even though pe significant other has lived with him for 20 years. Pt keeps insisting that he will be fine when he goes home. Pt having word finding difficulties and unable to say the name for areas touched on his arm for light touch. OT- Vision and Hearing OT- Hearing Assessment OT- Hearing Assessment Hearing Impaired OT- Vision Assessment Vision History Blurred Vision Occular Pursuits Impaired Horizontal Vision Assessment Comments Pt states wears glasses and does not have them here. Pt unable to read the clock . M7 OT- IP Mobility and Balance Start: 04/30/19 13:00 Freq: Status: Active Protocol: Document 04/30/19 10:42 [facility] (Rec: 04/30/19 13:34 [facility] [id number]) OT-Transfer Assessment Sit to and From Stand Sit to and from Stand Moderate Assistance,1 Person Assistance Transfers Transfer Ability Moderate Assistance,1 Person Assistance Technique Transfer Destination Chair,Toilet Transfer Technique Stand Step Pivot Devices Transfer Assistive Devices Gait Belt,Front Wheeled Walker Comments Mobility Comments Pt having great difficulty to come to stand and leaning to the left and needing MODA to stand to FWW. Pt not wanting to use FWW and starting to walk to the bathroom and holding to doorway and losing his balance to the left and needing MODA from falling over . Pt heavy use of grab bar to sit and therapist insisted on use of FWW to get back to the recliner. O2 on RA started while sitting 88% and after up on his feet 91% and after getting back to the recliner 93%. OT- Balance Assessment Sitting Balance and Reactions Static Sitting Balance Ability Normal Dynamic Sitting Balance Ability Good Standing Balance and Reactions Static Standing Balance Ability Poor Dynamic Standing Balance Ability Poor M8 OT- IP Objective Assessments Start: 04/30/19 13:00 Freq: Status: Active Protocol: Document 04/30/19 10:42 [facility] (Rec: 04/30/19 13:34 [facility] [email or web address]) OT Gross Range of Motion Upper Extremity Range of Motion Assessment Within Functional Limits OT Strength Comments Strength Comments WFL LUE, not able to test RUE due to rib pain. OT- Coordination Assessment Upper Extremity Finger to Nose Test Within Functional Limits Comments Coordination Comments Increased time for finger to thumb opposition. OT-Muscle Tone Assessment Muscle Tone WNL Yes OT Sensation Assessment Comments Summary Comments Decreased sensation for left elbow and wrist for light touch. M9 OT- IP Assessment and Plan Start: 04/30/19 13:00 Freq: Status: Active Protocol: Document 04/30/19 10:42 [facility] (Rec: 04/30/19 13:34 [facility] [email or web address]) OT Summary Assessment and Plan Potential Rehabilitation Potential Good Analytic Complexity at Evaluation Low Summary OT Impairments Pain,Balance,Functional Cognition,Functional Mobility, Dressing,Toileting,Bathing, Toilet Transfers,Shower Transfers Progress Towards Goals Slow Progress due to Pain,Slow Progress due to Medical Issues,Slow Progress due to Activity Tolerance,Slow Progress due to Cognition Assessment Summary Pt low complexity and main barriers are pain, decreased balance, decreased awareness of midline, decreased safety awareness, and now needing assist for ADL's and functional mobility. Pt's significant other when called feels that the pain medications is making him confused. Pending her ability to care for pt , at this time recommending skilled rehab. Goals Self-Feeding Goal Independent Grooming Goal Independent Dressing Goal Independent Toileting Goal Independent Bathing Goal Standby Assistance Toilet Transfer Goal Independent Shower Transfer Goal Standby Assistance Patient/Caregiver Education Goal Caregiver Independent Assisting Patient Days to Meet Goals 5 Frequency of Treatment Frequency Of Treatment Once a Day Treatment Plan OT Treatment Plan ADL Training,Functional Cognition Training,Functional Mobility,Patient/Family Education,Discharge Planning Discharge Recommendations OT Discharge Recommendations SNF Rehab
--- NOTE | 2019-04-30 11:13 | PM.PN.1 ---
Subjective Subjective Date Patient Seen: 04/30/19 Time Patient Seen: 11:13 Interval history: No acute overnight events. Pain is well controlled, breathing comfortably on room air. Per staff patient is unsteady on his feet. Exam Vital Signs (past 8 hours): - 04/30/19 04:00 04/30/19 08:00 Temperature 97.5 F L 98.5 F Pulse Rate 65 78 Respiratory Rate 18 20 Blood Pressure 165/69 H 131/67 Pulse Oximetry 98 96 Oxygen Delivery Method Room Air Oxygen Flow Rate 0 Narrative Exam Narrative: General adult male alert oriented no acute distress. Chest nonlabored respirations no audible wheezing. Objective Labs Result Diagrams: 04/29/19 18:40 04/29/19 16:10 Labs: Laboratory Results - last 24 hr 04/29/19 04/29/19 04/29/19 16:10 16:10 16:10 WBC 13.0 H RBC 4.97 Hgb 15.0 Hct 44.8 MCV 90.2 MCH 30.2 MCHC 33.5 RDW 14.0 Plt Count 181 Neut % (Auto) 85.4 H Lymph % (Auto) 9.2 L [place] % (Auto) 3.5 Eos % (Auto) 1.5 L Baso % (Auto) 0.4 Neut # (Auto) 33664 H Lymph # (Auto) 1200 [place] # (Auto) 500 Eos # (Auto) 200 Baso # (Auto) 100 PT 11.2 INR 1.0 APTT 26 L Sodium 137 Potassium 4.2 Chloride 101 Carbon Dioxide 25 BUN 15 Creatinine 1.00 Estimated GFR > 60.0 BUN/Creatinine Ratio 15.0 Glucose 209 H Calcium 8.8 Total Bilirubin 0.8 AST 25 ALT 23 Alkaline Phosphatase 66 Total Protein 7.2 Albumin 4.1 Globulin 3.1 Albumin/Globulin Ratio 1.3 Lipase 197 Ethyl Alcohol < 10 Blood Type Antibody Screen 04/29/19 04/29/19 16:10 18:40 WBC 17.9 H RBC 4.84 Hgb 14.6 Hct 43.6 MCV 90.2 MCH 30.2 MCHC 33.5 RDW 14.1 Plt Count 176 Neut % (Auto) 90.4 H Lymph % (Auto) 4.9 L [place] % (Auto) 4.3 Eos % (Auto) 0.2 L Baso % (Auto) 0.2 Neut # (Auto) 19366 H Lymph # (Auto) 900 L [place] # (Auto) 800 Eos # (Auto) 0 Baso # (Auto) 0 PT INR APTT Sodium Potassium Chloride Carbon Dioxide BUN Creatinine Estimated GFR BUN/Creatinine Ratio Glucose Calcium Total Bilirubin AST ALT Alkaline Phosphatase Total Protein Albumin Globulin Albumin/Globulin Ratio Lipase Ethyl Alcohol Blood Type B Positive Antibody Screen Negative Assessment & Plan Assessment & Plan narrative: 79-year-old man hx of CVA status post ground level fall with a small right pneumothorax and single rib fracture. Pain is well controlled on current pain regimen continue as written. Pneumothorax improving. Was 10 % and todays CXR demonstrates interval improvement. -Incentive spirometry -FU PT/OT and SW regarding disposition -pLovenox and SCDs for VTE prophylaxis. Quality VTE Deep Vein Thrombosis/Pulmonary Embolism Present on Admission: No
--- NOTE | 2019-04-30 11:21 | PC.NURSE ---
Addendum entered by Eli Wolfe R.N. 04/30/19 13:55: MS/PAIN/RESP- when pt SO Deonna arrived, she started taking off oxygen, stating she wanted him dressed and ready to go home, explained that PT and OT did not think pt safe yet as he has poor balance and safety knowledge, continues to appear confused and when stood w/gait belt and fww, pt had sudden lean to l side before he was cued to stand straight, discussed that pt did have oxycodone at 430 am and since then we have limited to ibuprofen and a lidocaine patch, had Chantell from [facility] come down and speak to pt and SO and it was agreed that pt will stay and continue with strengthening this afternoon, pt given IS and demonstrated correct use to 2500. Original Note: AM NOTE - pt awakens easily for breakfast, speech is clear with a delayed response, oriented to hospital and does remember fall at home in the garage, states he feels good and slept well, does wince with discomfort when mobilizing, assisted up to dangle position to assist w/urinal, using gait belt and fww, pt is initially wobbly and leans to one side, able take steps to chair, alarm set, placed lidocaine patch, bs clear upper lobes, coarse crackles mid r to lower, ra 95-97%.
[2019-04-30 12:02] LABS: Add Manual Diff / Slide Review NO; Basophils Absolute Auto 0 /uL (0-100); Basophils Percent Auto 0.4 % (0-2); Eosinophils Absolute Auto 100 /uL (0-450); Eosinophils Percent Auto 0.8 % (2-4); Hematocrit 43.8 % (41-53); Hemoglobin 14.9 g/dL (13.5-17.5); Lymphocytes Absolute Auto 1100 /uL (1100-4500); Lymphocytes Percent Auto 10.3 % (25-40); Mean Corpuscular HGB Conc 33.9 % (30-36); Mean Corpuscular Hemoglobin 30.4 PG (26-34); Mean Corpuscular Volume 89.7 fL (80-100); Monocytes Absolute Auto 600 /uL (0-900); Monocytes Percent Auto 5.9 % (3-14); Neutrophils Absolute Auto 8800 /uL (1500-7000); Neutrophils Percent Auto 82.6 % (50-75); Platelet Count 176 X10^3/uL (150-400); Red Blood Cell Count 4.89 X10^6/uL (4.5-5.9); Red Cell Distribution Width 14.2 % (11.6-14.8); White Blood Cell Count 10.6 X10^3/uL (4.5-11.0)
--- NOTE | 2019-04-30 13:25 | CM.DANOTE ---
DCP: Case received, EMR reviewed and met with patient. Was able to also meet with significant other, Deonna, who resides with patient. Introduced self and role. Was able to complete DCP assessment/template with information currently available. Patient is a 79 year old male who admitted yesterday evening to the care of the hospitalist/surgical team. PCP: Dr. Hernandez. Payer: confirmed: Medicare. Patient came to the hospital via ambulance secondary to a ground level fall in his garage. Patient had been in his garage, and sustained a fall off of his high stool. He inherited a small pneumothorax. Met with patient, noted some confusion, initially stated that he lived alone. Significant other, Deonna, came in. She explained that she lives with patient, and has been with him and has been with him for 20 years. She mentioned that he is independent, drives, but is sensitive to oxycontin. Patient does not use any DME supplies. Patient is unsteady at this time. Deonna was wanting him to go home today, but reassured her that surgeon wants patient to stay another day, since he is unsteady, and to see how he does after medication is out of his system. She was agreeable to that, but is hoping he can go home tomorrow. Gave her a business card with this upper caser's phone number on it with any questions. P: DCP to continue to follow closely. Patient should be able to go home when he is medically stable. Landy Jones RN/Car Retarder Operator
[2019-04-30] MEDS: SIMVASTATIN 40 MG TABLET PO (20:08)
[2019-05-01 04:30] VITALS: BP 152/80; PULSE 75; RESP 18; TEMP 36.9; O2SAT 97
[2019-05-01] MEDS: LEVOTHYROXINE 75 MCG TABLET PO (06:05)
[2019-05-01] MEDS: IBUPROFEN 600 MG TABLET PO ×2 (06:05→12:21)
[2019-05-01 07:00] VITALS: O2SAT 95
[2019-05-01 08:00] VITALS: BP 141/65; PULSE 77; RESP 16; TEMP 37.1; O2SAT 92
[2019-05-01] MEDS: ENOXAPARIN 40 MG/0.4 ML SYRINGE SUBCUT (09:12)
[2019-05-01] MEDS: GABAPENTIN 100 MG CAPSULE PO (09:12)
[2019-05-01] MEDS: METOPROLOL IR 25 MG TABLET 50 MG PO (09:13)
[2019-05-01] MEDS: LIDOCAINE PATCH 1 EACH ADH..PATCH TOP (09:13)
--- NOTE | 2019-05-01 09:36 | PT.IPTN ---
Current Diagnoses Pneumothorax, unspecified (04/29/19) Physical Therapy Treatment Note M2 PT-IP Current Condition Start: 04/30/19 12:53 Freq: NEEDED Status: Active Protocol: Document 04/30/19 09:37 AB (Rec: 04/30/19 13:13 AB [id number]) Physical Therapy Current Condition Current Condition Evaluation Date 04/30/19 Treatment Diagnosis R 9th rib fx; pneumothorax; difficulty in walking Onset Date 04/29/19 Precautions Other Precautions falls M3 PT-IP Subjective Start: 04/30/19 12:53 Freq: NEEDED Status: Active Protocol: Document 05/01/19 09:18 CLB (Rec: 05/01/19 09:47 CLB [id number]) Subjective Physical Therapy Visit Type Type Treatment Note Visit Start Time 09:18 Visit Stop Time 09:36 Total Visit Minutes 18 Number of CLEARING SUPERVISOR Visits 1 Physical Therapy Visit Comments Patient Comments pt agreeable to do PT with encouragement. Therapy Pain Assessment Pain When Pain Assessed During Mobility M4 PT-IP Mobility and Gait Start: 04/30/19 12:53 Freq: NEEDED Status: Active Protocol: Document 05/01/19 09:18 CLB (Rec: 05/01/19 09:47 CLB [id number]) PT-Transfer Assessment Sit to and From Stand Sit to and from Stand Minimal Assistance,Moderate Assistance,1 Person Assistance ,Use of Upper Extremities Equipment Transfer Assistive Device Gait Belt,Front Wheeled Walker Orthotic/Prosthetic Devices or Brace: No Transfer Ability Level of Assist Minimal Assistance,Moderate Assistance,1 Person Assistance ,Use of Upper Extremities Comments Mobility Comments Pt in chair was able to stand Min A requiring cues for hand placement. Pt also required cues for chair approach as pt set FWW aside and tried to sit in chair before it was safe. Pt instructed to keep walker with him until he had safelty backed up to chair. Gait Assessment Gait Gait Assistance Required: Minimum Assistance,Moderate Assistance,1 Person Assist Distance (Feet) 20 Able to Maintain Weight Bearing Status Yes During Gait Assistive Devices Assistive Device Gait Belt,Front Wheeled Walker Orthotic/Prosthetic Devices or Brace: No Gait Deviations General Gait Pattern Antalgic,Decreased Stride Length,Decreased Feet Clearance,Flexed Trunk Factors Limiting Gait Function Factors Limiting Gait Function Decreased Activity Tolerance, Decreased Strength,Difficulty Following Directions,Limited Range of Motion,Pain,Poor Balance,Poor Safety Awareness Comments Gait Comments Pt continues to be unsteady with gait requiring Mod A to correct LOB x3. M5 PT-IP Objective Assessments Start: 04/30/19 12:53 Freq: NEEDED Status: Active Protocol: Document 04/30/19 09:37 AB (Rec: 04/30/19 13:13 AB [id number]) Orientation Orientation/Cognition Level of Alertness Alert Orientation Name,Age,Birthday,Place, Situation Safety Awareness Decreased Safety Awareness Memory Description Short Term Impaired,Shelter Impaired Comments pt with confusion Gross Range of Motion Lower Extremity ROM Assessment Within Functional Limits Strength Lower Extremity Strength Assessment Bilaterally Impaired Hip 3+/5 Knee 3+/5 Muscle Tone Muscle Tone WNL Yes M6 PT-IP Treatment Start: 04/30/19 12:53 Freq: NEEDED Status: Active Protocol: Document 05/01/19 09:48 CLB (Rec: 05/01/19 09:48 CLB [id number]) Physical Therapy Treatment Exercises Exercises Ankle Pumps,Gluteal Sets,Quad Sets Education Education Provided Safety M7 PT-IP Assessment and Plan Start: 04/30/19 12:53 Freq: NEEDED Status: Active Protocol: Document 05/01/19 09:18 CLB (Rec: 05/01/19 09:47 CLB [id number]) PT Summary Assessment and Plan Summary Impairments Pain,ROM,Strength,Balance, Coordination,Sensation,Tone, Cognition,Bed Mobility, Transfers,Gait,Activity Tolerance Assessment Summary Pt continues to require Min- Mod A for transfers and gait with LOB x3 during gait requiring Mod A to prevent fall to left. At this time pt would benefit from SNF rehab to inprove activity tolerance and safety. Pt left in chair with alarm on and all other needs within reach. Goals Bed Mobility Goal Independent Transfer Goal Standby Assistance,Front Wheeled Walker Gait Goal Standby Assistance,Front Wheel Walker Gait Distance 200 Days to Meet Goals 10 Frequency of Treatment Frequency Of Treatment Once a Day Treatment Plan Physical Therapy Treatment Plan Bed Mobility Training,Transfer Training,Gait Training, Therapeutic Exercise,Balance Retraining,Discharge Planning, Hot or Cold Pack,Neuromuscular Re-ed,Coordination Retraining ,Manual Therapy Recommendations To Nursing Amount of Assist Needed 1 Person Assist Discharge Recommendations PT Discharge Recommendations SNF Rehab Other Discharge Recommendations SNF rehab vs 26/01 assist at home / HHPT
--- NOTE | 2019-05-01 11:00 | DI.RAD.S_ITS ---
PROCEDURE: XR CHEST 1V INDICATIONS: f/u pneumothorax TECHNIQUE: One view of the chest was acquired. COMPARISON: [facility], CR, XR RIBS RT MIN 3V W CXR 1V, 04/29/2019, 15:37. [facility], CR, XR CHEST 1V, 04/30/2019, 5:38. FINDINGS: Surgical changes and devices: There is a suture seen overlying the right distal clavicle. Lungs and pleura: There is a small right-sided pneumothorax seen, which is not significantly changed compared to the prior examination. No left-sided pneumothorax. No pleural effusion. No focal infiltrates are seen. Mediastinum: Mediastinal contours appear normal. Heart size is normal. Atherosclerotic calcification of the aortic arch is noted. Bones and chest wall: Right-sided soft tissue gas is seen. Right shoulder calcific tendinopathy can be seen. Age-appropriate bony degenerative changes are seen. One right-sided rib fracture can be seen. IMPRESSION: Small right-sided pneumothorax, stable from the prior day. Right sided soft tissue gas is seen. One right-sided rib fracture again seen. Dictated by: Akira Yoder M.D. on 05/01/2019 at 10:21 Approved by: Akira Yoder M.D. on 05/01/2019 at 10:23
--- NOTE | 2019-05-01 13:09 | PC.NURSE ---
AM NOTE - pt is alert, oriented, speech pattern is delayed, does not remember to use call light and needs cues to mobilize, initially denies pain, when prompted, states discomfort w/deep breathing r rib area, placed lidocaine patch, resting hand tremor noted, when assisted up from chair to use fww, pt initially has poor balance and leans back and to the side, then able to straighten w/cues and ambul to br, ret to chair w/chair alarm set.
--- NOTE | 2019-05-01 13:51 | PM.DS.1 ---
History of Present Illness History of Present Illness Date Patient Seen: 05/01/19 Time Patient Seen: 13:51 Chief complaint: Fell off chair Narrative: The patient is a gentleman who was admitted after ground level fall for a pneumothorax and a fractured rib. Discharge Providers Provider Date of admission: 04/29/19 19:00 Discharge Date: 05/01/19 Primary care physician: Mt Hernandez MD Consults: 04/29/19 18:14 Consult to Care Management Routine Comment: Consult to Occupational Therapy Evaluate & Treat Comment: Physician Instructions: Evaluate and treat Consult to Physical Therapy Evaluate & Treat Comment: Physician Instructions: Evaluate and Treat Discharge provider: Celso Villatoro MD Summary Hospital Course Discharge Diagnosis: One traumatic pneumothorax acute Fracture of 1 rib acute (right 9th rib) Hypertension chronic Hypothyroidism chronic Hyperlipidemia chronic History of cardiac ischemia History of stroke Type 2 diabetes mellitus controlled with diet. Chronic. Obesity with a BMI of 33 Hospital Course: The patient was admitted to the hospital and observed. His lung partially re-expanded with simple observation. There was no increase in his pneumothorax and his symptoms of pain resolved. He was continued on his pre-admission medication. His pain was controlled Naprosyn. Status at Discharge Cognitive/behavioral status at discharge: at baseline, confused Functional status at discharge: independent ambulation (A little unsteady on his feet which apparently is chronic) Overall status at discharge: patient is progressing back to baseline Time Spent with Patient Time spent: Less than 30 minutes Exam Vital Signs (past 8 hours): - 05/01/19 07:00 05/01/19 08:00 Temperature 98.8 F Pulse Rate 77 Respiratory Rate 16 Blood Pressure 141/65 H Pulse Oximetry 95 92 Oxygen Delivery Method Room Air Oxygen Flow Rate 0 Narrative Exam Narrative: Lungs are clear. Decreased breath sounds in the right lung. Excellent air movement however. He is able to take a deep breath without difficulty and draws at least 2000 cc on incentive spirometer. He does not wince in pain at all. There is no significant chest wall tenderness. Abdomen is protuberant soft. Heart distant tones regular rate and rhythm. Objective Labs Result Diagrams: 04/30/19 11:37 04/29/19 16:10 Discharge Plan Discharge Plan Patient Disposition: Home Discharge comment: You have a rib fracture in her right 9th rib. It will take weeks to heal. If you develop increasing shortness of breath or a chronic cough for pneumonia like symptoms with a fever please come to the emergency room. Otherwise you should follow up with Dr. Hyatt in his office. You should also make an appointment to see her family physician. Discharge Med Rec/Prescriptions Prescriptions: New tramadol 50 mg tablet 50 mg PO Q6H PRN (Reason: pain) Qty: 30 RF: 0 ibuprofen 200 mg tablet 800 mg PO Q6H PRN (Reason: pain) Qty: 60 RF: 0 acetaminophen [Tylenol] 325 mg capsule 650 mg PO QID PRN (Reason: pain) Qty: 60 RF: 0 Continued aspirin 325 mg tablet 325 mg PO DAILY RF: 0 metoprolol tartrate 25 mg tablet 50 mg PO BID Qty: 360 RF: 3 (DME) Glucose: Test Strips 0 .Route .MEDSUPPLY Qty: 100 RF: 3 levothyroxine [Synthroid] 75 mcg tablet 75 mcg PO QAM Qty: 90 RF: 3 simvastatin 80 mg tablet 40 mg PO BEDTIME RF: 0 naproxen sodium [Aleve] 220 mg Capsule 220 mg PO .ONCE RF: 0 Follow up/Referrals: Mt Hernandez MD [Primary Care Provider] - Be Hyatt MD [Physician] - (Call and make an appointment to see Dr. Hyatt. You should see him in about a week. If you have problems please call our office as well.) Provider Discharge Instructions Diet: Regular Activity: No travel by air for 1 month. No driving while on narcotics. No driving until your doctor give you permission. Skin/Wound/Dressing Care Report to your healthcare provider any signs of infection, such as:: chills, fever and increased pain Visit Report/Discharge Packet Instructions: DI for Pneumothorax, Tramadol Visit Report Forms: Patient Portal/API, Stroke Signs & Symptoms Discharge Data Primary Care Provider: Mt Hernandez Quality VTE Deep Vein Thrombosis/Pulmonary Embolism Present on Admission: No
--- NOTE | 2019-05-01 14:49 | PC.NURSE ---
Patient discharged to home with Dee, caregiver/significant other. Went over discharge instructions and medications with Dee and patient. Questions answered. Rx for tramadol given to Dee. Patient and Dee aware to call Dr Elmore office tomorrow and schedule a follow up appt, phone number given. Patient taken downstairs via , Dee had to call a cab for a ride for herself and patient home. Patient assisted into cab, had all belongings.
== END 2019-05-01 15:10 | disposition home or self-care (01) | DRG 200 ==
LOC: ED 18:52 → AC 04-30 08:56
PROVIDERS: Admitting Provider Surgery; Emergency Provider Nurse Practitioner Family; PCP Family Medicine; Visit Provider Surgery
DX: S27.0XXA Traumatic pneumothorax, initial encounter (principal); S22.31XA Fracture of one rib, right side, initial encounter for closed fracture; I10 Essential (primary) hypertension; E03.9 Hypothyroidism, unspecified; E11.9 Type 2 diabetes mellitus without complications; E78.5 Hyperlipidemia, unspecified; E66.9 Obesity, unspecified; W18.30XA Fall on same level, unspecified, initial encounter; Z68.33 Body mass index [BMI] 33.0-33.9, adult; Z86.73 Personal history of transient ischemic attack (TIA), and cerebral infarction without residual deficits
CPT/HCPCS: 36415; 71045; 71101; 80053; 80320; 82962; 83690; 85025; 85610; 85730; 86850; 86900; 86901; 93005; 96374; 96375; 97116; 97162; 97165; 99221; 99232; 99238; 99283; 99285; J1650; J2270; J2405

== ENCOUNTER → 2019-12-22 14:51 | Outpatient (CLI) | payer MEDICARE, SELFPAY ==
[2019-04-29 19:15] VITALS: BMI 32.1
[2019-12-22 15:52] LABS: Free T3, Triiodothyronine Free 2.83 pg/mL (2.77-5.27); Free T4, Direct Thyroxine 1.31 ng/dL (0.78-2.19)
[2019-12-22 16:06] LABS: Thyroid Stimulating Hormone 3.11 uIU/mL (0.47-4.68)
== END ==
PROVIDERS: PCP Nurse Practitioner; Referring Provider Nurse Practitioner; Visit Provider Nurse Practitioner
DX: E03.9 Hypothyroidism, unspecified (principal)
CPT/HCPCS: 36415; 84439; 84443; 84481

== ENCOUNTER → 2021-01-11 16:15 | Outpatient (CLI) | payer MEDICARE, SELFPAY ==
[2019-04-29 19:15] VITALS: BMI 32.1
[2021-01-11 18:20] LABS: Alanine Aminotransferase 21 IU/L (<50); Albumin 3.6 g/dL (3.5-5.0); Albumin Globulin Ratio 1.2 (1.0-2.8); Alkaline Phosphatase 59 U/L (38-126); Aspartate Aminotransferase 28 IU/L (17-59); BUN Creatinine Ratio 16.9 (6-22); Bilirubin Total 0.6 mg/dL (0.2-1.3); Blood Urea Nitrogen 14 mg/dL (9-20); Calcium 8.9 mg/dL (8.4-10.2); Carbon Dioxide 28 mmol/L (22-32); Chloride 103 mmol/L (98-107); Cholesterol 129 mg/dL (140-199); Estimated Glomerular Filt Rate > 60.0 mL/min (>60); Globulin 3.1 g/dL (1.7-4.1); Glucose 116 mg/dL (80-110); HDL Cholesterol 41 mg/dL (40-60); HEMOLYSIS < 15 (0-50); Hemoglobin A1C% w Est Avg Glu 5.6 % (4.0-6.0); LDL Cholesterol Calculated 71 mg/dL (<100); Potassium 4.3 mmol/L (3.4-5.1); Sodium 137 mmol/L (137-145); Total Protein 6.7 g/dL (6.3-8.2); Triglycerides 86 mg/dL (35-150)
[2021-01-11 18:52] LABS: Thyroid Stimulating Hormone 1.17 uIU/mL (0.47-4.68)
== END ==
PROVIDERS: PCP Nurse Practitioner; Referring Provider Nurse Practitioner; Visit Provider Nurse Practitioner
DX: E03.9 Hypothyroidism, unspecified (principal); E11.9 Type 2 diabetes mellitus without complications; E78.00 Pure hypercholesterolemia, unspecified; I10 Essential (primary) hypertension
CPT/HCPCS: 36415; 80053; 80061; 83036; 84443

== ENCOUNTER → 2022-04-18 16:13 | Outpatient (CLI) | payer MEDICARE, SELFPAY ==
[2022-02-26 15:15] VITALS: BMI 32.1
[2022-04-18 18:47] LABS: Hemoglobin A1C% w Est Avg Glu 5.5 % (4.0-6.0)
[2022-04-18 18:55] LABS: Alanine Aminotransferase 16 IU/L (<50); Albumin 3.7 g/dL (3.5-5.0); Albumin Globulin Ratio 0.9 (1.0-2.8); Alkaline Phosphatase 79 U/L (38-126); Aspartate Aminotransferase 21 IU/L (17-59); BUN Creatinine Ratio 14.5 (6-22); Bilirubin Total 0.5 mg/dL (0.2-1.3); Blood Urea Nitrogen 12 mg/dL (9-20); Calcium 8.5 mg/dL (8.4-10.2); Carbon Dioxide 29 mmol/L (22-32); Chloride 99 mmol/L (98-107); Cholesterol 122 mg/dL (140-199); Estimated Glomerular Filt Rate > 60 mL/min (>60); Globulin 3.9 g/dL (1.7-4.1); Glucose 102 mg/dL (80-110); HDL Cholesterol 35 mg/dL (40-60); HEMOLYSIS < 15 (0-50); LDL Cholesterol Calculated 71 mg/dL (<100); Potassium 4.1 mmol/L (3.4-5.1); Sodium 137 mmol/L (137-145); Total Protein 7.6 g/dL (6.3-8.2); Triglycerides 81 mg/dL (35-150)
[2022-04-18 19:10] LABS: Free T3, Triiodothyronine Free 2.63 pg/mL (2.77-5.27); Free T4, Direct Thyroxine 1.58 ng/dL (0.78-2.19)
[2022-04-18 19:24] LABS: Thyroid Stimulating Hormone 2.13 uIU/mL (0.47-4.68)
[2022-04-21 18:38] LABS: Hep C Virus Ab w/Reflex Quant NEGATIVE s/c (NEGATIVE)
== END ==
PROVIDERS: PCP Nurse Practitioner; Referring Provider Nurse Practitioner; Visit Provider Nurse Practitioner
DX: E11.9 Type 2 diabetes mellitus without complications (principal); E03.9 Hypothyroidism, unspecified; E78.00 Pure hypercholesterolemia, unspecified; I10 Essential (primary) hypertension; Z79.899 Other long term (current) drug therapy
CPT/HCPCS: 36415; 80053; 80061; 83036; 84439; 84443; 84481; 86803

== ENCOUNTER → 2022-12-04 15:56 | Outpatient (CLI) | payer MEDICARE, MEDICAID, SELFPAY ==
[2022-02-26 15:15] VITALS: BMI 32.1
--- NOTE | 2022-12-04 15:58 | DI.ECHO.S_ITS ---
[facility]---------+ [facility] +---------+ : : [address] : : : : [id number] : : : : Phone: [phone]+ Echocardiogram Report + + :Name: ANDER RAMIREZ Study Date: 12/04/2022 Height: 74 in : :[facility] ReadingLocation: Weight: 175 lb : : Gender: Male BSA: 2.1 m2 : :: 1940 Age: 82 yrs BP: 167/81 mmHg: :Reason For Study: Hypertension : :Ordering Physician: Nico, : :Chelita Performed By: Nicole Oneill : :Referring: CHELITA CHACON : + + Interpretation Summary There is moderate concentric left ventricular hypertrophy. Left ventricular systolic function is low normal. The ejection fraction is estimated to be 50- 55%. There are no obvious focal wall motion abnormalities noted but poor endocardial definition reduces the sensitivity for the detection of such. Diastolic parameters suggest a relaxation abnormality of the left ventricle, consistent with probable normal filling pressures. The right ventricle is normal size. The right ventricular systolic function is normal. Pulmonary artery pressures cannot be estimated because of the lack of a measurable TR jet velocity. The left atrial size is normal. Right atrial size is normal. The aortic valve is heavily calcified. The peak aortic velocity is 158 m/sec. There is no other significant valvular heart disease. The ascending aorta is mildly enlarged. Procedure: A two-dimensional transthoracic echocardiogram with color flow and Doppler was performed. The study quality was technically difficult. Comparison is made with the echocardiogram of 12/12/2014. The patient was in normal sinus rhythm during the exam. Left Ventricle: The left ventricle is normal in size. There is moderate concentric left ventricular hypertrophy. Left ventricular systolic function is low normal. The ejection fraction is estimated to be 50-55%. There are no obvious focal wall motion abnormalities noted but poor endocardial definition reduces the sensitivity for the detection of such. Diastolic parameters suggest a relaxation abnormality of the left ventricle, consistent with probable normal filling pressures. Right Ventricle: The right ventricle is normal size. The right ventricular systolic function is normal. Atria: The left atrial size is normal. Right atrial size is normal. There is no Doppler evidence for an interatrial shunt. Mitral Valve: The mitral valve leaflets appear mildly thickened, but open well. There is moderate mitral annular calcification. No significant mitral valve stenosis. The mitral valve mean gradient is 3 mmHg. There is trace mitral regurgitation. Aortic Valve: The aortic valve is heavily calcified. The peak aortic velocity is 158 m/sec. The aortic valve mean gradient is 6 mmHg. No aortic regurgitation is present. Tricuspid Valve: The tricuspid valve is normal. There is no tricuspid stenosis. There is trace tricuspid regurgitation. Pulmonary artery pressures cannot be estimated because of the lack of a measurable TR jet velocity. Pulmonic Valve: The pulmonic valve leaflets are thin and pliable; valve motion is normal. There is no pulmonic valvular stenosis. There is no pulmonic valvular regurgitation. There is no other significant valvular heart disease. Great Vessels: The aortic root is normal size. The ascending aorta is mildly enlarged. The pulmonary artery is normal size. The inferior vena cava was not well visualized. Pericardium/ Pleura There is no pericardial effusion. There is no pleural effusion. MMode/2D Measurements & Calculations LVIDd: 3.6 cm LVOT diam: 1.6 cm LVIDs: 2.8 cm Ao root diam: 3.0 cm FS: 22.2 % asc Aorta Diam: 3.6 cm EPSS: 0.60 cm IVSd: 1.8 cm LVPWd: 1.4 cm LV powell. diameter/BSA (cm/m^2): 1.8 LV sys. diameter/BSA (cm/m^2): 1.4 LA A2 area: 10.1 cm2 RA long axis: 4.7 cm LA A4 area: 16.1 cm2 RA area: 15.5 cm2 LA length (vol): 3.8 cm RA vol: 43.6 ml LA vol: 36.3 ml RA : 21.3 ml/m2 LA vol index: 17.7 ml/m2 RVD1 (basal): 3.7 cm LVLs ap4: 6.1 cm LVLd ap2: 7.6 cm TAPSE_phl: 2.2 cm LVLs ap2: 6.6 cm Doppler Measurements & Calculations Ao V2 max: 157.0 cm/sec LVOT Max Fritz: 76.0 cm/sec Ao V2 mean: 111.0 cm/sec LV V1 max P.3 mmHg Ao max P.0 mmHg LV V1 VTI: 16.6 cm Ao mean P.0 mmHg SOFI(I,D): 0.92 cm2 Ao V2 VTI: 36.3 cm SOFI(V,D): 0.97 cm2 sev ratio: 0.46 SOFI indexed to BSA (cm^2/m^2): 0.45 MV E max fritz: 61.3 cm/sec PA V2 max: 92.4 cm/sec MV A max fritz: 115.0 cm/sec PA V2 mean: 63.9 cm/sec MV E/A: 0.53 PA mean P.0 mmHg Med Peak E' Fritz: 4.5 cm/sec PA pr(Accel): 43.5 mmHg E/E' med: 13.6 Lat Peak E' Fritz: 4.7 cm/sec E/E' lat: 12.9 E/e' average: 13.3 MV dec time: 0.23 sec MVA(VTI): 1.2 cm2 MV V2 mean: 80.7 cm/sec SV(LVOT): 33.4 ml MV mean P.0 mmHg MV V2 VTI: 27.2 cm AV VR_phl: 0.48 OSFI(VTI)/BSA_phl: 0.45 Reading Physician:06:28 PM
== END ==
PROVIDERS: PCP Nurse Practitioner; Referring Provider Nurse Practitioner; Visit Provider Nurse Practitioner
DX: I10 Essential (primary) hypertension (principal); I51.7 Cardiomegaly
CPT/HCPCS: 93306

== ENCOUNTER → 2023-12-16 14:09 | Outpatient (CLI) | payer MEDICARE, MEDICAID, SELFPAY ==
[2023-11-04 10:00] VITALS: BMI 32.1
[2023-12-16 16:16] LABS: Add Manual Diff / Slide Review NO; Basophils Absolute Auto 100 /uL (0-100); Basophils Percent Auto 0.8 % (0-2); Eosinophils Absolute Auto 400 /uL (0-450); Eosinophils Percent Auto 4.1 % (2-4); Hematocrit 30.2 % (41-53); Hemoglobin 9.7 g/dL (13.5-17.5); Lymphocytes Absolute Auto 1900 /uL (1100-4500); Lymphocytes Percent Auto 18.1 % (25-40); Mean Corpuscular HGB Conc 32.1 % (30-36); Mean Corpuscular Hemoglobin 22.7 PG (26-34); Mean Corpuscular Volume 70.8 fL (80-100); Monocytes Absolute Auto 400 /uL (0-900); Monocytes Percent Auto 3.8 % (3-14); Neutrophils Absolute Auto 7600 /uL (1500-7000); Neutrophils Percent Auto 73.2 % (50-75); Platelet Count 429 X10^3/uL (150-400); Red Blood Cell Count 4.27 X10^6/uL (4.5-5.9); Red Cell Distribution Width 16.8 % (11.6-14.8); White Blood Cell Count 10.3 X10^3/uL (4.5-11.0)
[2023-12-16 16:50] LABS: Alanine Aminotransferase 18 IU/L (<50); Albumin 3.2 g/dL (3.5-5.0); Albumin Globulin Ratio 0.9 (1.0-2.8); Alkaline Phosphatase 74 U/L (38-126); Aspartate Aminotransferase 20 IU/L (17-59); BUN Creatinine Ratio 23.5 (6-22); Bilirubin Total 0.3 mg/dL (0.2-1.3); Blood Urea Nitrogen 16 mg/dL (9-20); Calcium 8.5 mg/dL (8.4-10.2); Carbon Dioxide 29 mmol/L (22-32); Chloride 100 mmol/L (98-107); Cholesterol 145 mg/dL (140-199); Estimated Glomerular Filt Rate > 60 mL/min (>60); Globulin 3.7 g/dL (1.7-4.1); Glucose 152 mg/dL (80-110); HDL Cholesterol 46 mg/dL (40-60); HEMOLYSIS < 15 (0-50); LDL Cholesterol Calculated 84 mg/dL (<100); Potassium 4.5 mmol/L (3.4-5.1); Sodium 133 mmol/L (137-145); Total Protein 6.9 g/dL (6.3-8.2); Triglycerides 73 mg/dL (35-150)
[2023-12-16 17:10] LABS: Free T3, Triiodothyronine Free 2.28 pg/mL (2.77-5.27); Free T4, Direct Thyroxine 1.34 ng/dL (0.78-2.19)
[2023-12-16 17:23] LABS: Thyroid Stimulating Hormone 1.85 uIU/mL (0.47-4.68)
[2023-12-16 20:40] LABS: Hemoglobin A1C% w Est Avg Glu 6.1 % (4.0-6.0)
== END ==
LOC: LAB 14:10
PROVIDERS: PCP Nurse Practitioner; Referring Provider Nurse Practitioner; Visit Provider Nurse Practitioner
DX: I10 Essential (primary) hypertension (principal); E03.9 Hypothyroidism, unspecified; E78.00 Pure hypercholesterolemia, unspecified; E11.9 Type 2 diabetes mellitus without complications
CPT/HCPCS: 36415; 80053; 80061; 83036; 84439; 84443; 84481; 85025

== ENCOUNTER 2024-12-15 11:18 | Emergency (ER) | payer MEDICARE, MEDICAID, SELFPAY ==
[2023-12-16 15:47] VITALS: BMI 32.1
[2024-12-15] VITALS (23 sets, daily range): BP systolic 109–197; BP diastolic 57–99; PULSE 71–101; RESP 10–23; TEMP 36; O2SAT 92–100; BMI 21.9
--- NOTE | 2024-12-15 11:39 | EKG_ITS ---
[facility] [address] [place] [address] Test Date: 2024-12-15 Pat Name: Ric Perry Department: Room: Gender: Male Manager [employer]: [place] : 1940 Requested By: Order Number: [id number] Reading MD: Luis A Villanueva Measurements Intervals [place] Rate: 95 P: IN: 104 QRS: 36 QRSD: 104 T: 192 QT: 396 QTc: 497 Interpretive Statements Sinus rhythm with short IN with premature supraventricular complexes and with occasional premature ventricular complexes ST & T wave abnormality, consider lateral ischemia Prolonged QT Electronically Signed On 12-16-2024 0:12:10 PDT by Luis A Villanueva
--- NOTE | 2024-12-15 12:08 | DI.RAD.S_ITS ---
PROCEDURE: XR CHEST 1V INDICATIONS: suspected sepsis TECHNIQUE: One view of the chest was acquired. COMPARISON: [facility], CR, XR CHEST 1V, 05/01/2019, 11:02. FINDINGS: Surgical changes and devices: None. Lungs and pleura: Lungs are clear. No pleural effusions or pneumothorax. Mediastinum: Tortuous thoracic aorta. Heart size is enlarged. Bones and chest wall: No suspicious bony lesions. Overlying soft tissues appear unremarkable. IMPRESSION: No acute cardiopulmonary pathology. Dictated by: Reuben Horne M.D. on 12/15/2024 at 13:14 Approved by: Reuben Horne M.D. on 12/15/2024 at 13:15
--- NOTE | 2024-12-15 12:09 | DI.RAD.S_ITS ---
PROCEDURE: XR FOOT RT 2V INDICATIONS: necrotic toes TECHNIQUE: 2 views of the foot were acquired. COMPARISON: None. FINDINGS: Bones: No fractures or dislocations. There is osteopenia. Osteoarthritic changes are noted throughout right foot. No gross bony erosive changes. No suspicious bony lesions. Soft tissues: No tibiotalar joint effusion. Achilles tendon appears normal. IMPRESSION: Right foot joint osteoarthritis and osteopenia. No acute fracture or dislocation. No radiographic evidence of osteomyelitis. Dictated by: Reuben Horne M.D. on 12/15/2024 at 13:11 Approved by: Reuben Horne M.D. on 12/15/2024 at 13:14
[2024-12-15] MEDS: SODIUM CHLORIDE 0.9% 1,000 ML 1000 ML IV (12:14)
[2024-12-15 12:25] LABS: Add Manual Diff / Slide Review NO; Basophils Absolute Auto 100 /uL (0-100); Basophils Percent Auto 1.3 % (0-2); Eosinophils Absolute Auto 700 /uL (0-450); Eosinophils Percent Auto 7.8 % (2-4); Hematocrit 31.5 % (41-53); Hemoglobin 10.2 g/dL (13.5-17.5); Lymphocytes Absolute Auto 2300 /uL (1100-4500); Mean Corpuscular HGB Conc 32.5 % (30-36); Mean Corpuscular Hemoglobin 24.1 PG (26-34); Mean Corpuscular Volume 73.9 fL (80-100); Monocytes Absolute Auto 500 /uL (0-900); Monocytes Percent Auto 5.3 % (3-14); Neutrophils Absolute Auto 5600 /uL (1500-7000); Neutrophils Percent Auto 60.6 % (50-75); Platelet Count 318 X10^3/uL (150-400); Red Blood Cell Count 4.26 X10^6/uL (4.5-5.9); Red Cell Distribution Width 18.3 % (11.6-14.8); White Blood Cell Count 9.2 X10^3/uL (4.5-11.0)
[2024-12-15 12:40] LABS: INR 1.1 (0.9-1.3); Prothrombin Time 12.8 SECONDS (9.4-12.5)
[2024-12-15 12:43] LABS: PTT Partial Thromboplastin Tim 34 SECONDS (25.1-36.5)
[2024-12-15 12:56] LABS: Lactate (Lactic Acid) 1.2 mmol/L (0.7-2.1)
[2024-12-15 12:57] LABS: Alanine Aminotransferase 17 IU/L (<50); Albumin Globulin Ratio 0.8 (1.0-2.8); Alkaline Phosphatase 82 U/L (38-126); Aspartate Aminotransferase 23 IU/L (17-59); BUN Creatinine Ratio 19.6 (6-22); Bilirubin Total 0.4 mg/dL (0.2-1.3); Blood Urea Nitrogen 10 mg/dL (9-20); Calcium 8.3 mg/dL (8.4-10.2); Carbon Dioxide 26 mmol/L (22-32); Chloride 100 mmol/L (98-107); Estimated Glomerular Filt Rate > 60 mL/min (>60); Globulin 3.9 g/dL (1.7-4.1); Glucose 96 mg/dL (70-99); HEMOLYSIS < 15 (0-50); Lipase 145 U/L (23-300); Sodium 132 mmol/L (137-145); Total Protein 6.9 g/dL (6.3-8.2)
--- NOTE | 2024-12-15 13:00 | ED.WOUNDLAC ---
HPI - Wound/Laceration General Chief Complaint: Wound/Laceration Stated Complaint: Right big toe & 2nd toe gangreen Time Seen by Provider: 12/15/24 12:58 Source: patient, family and EMS Mode of arrival: EMS Limitations: no limitations History of Present Illness HPI narrative: 79-year-old male history of hypothyroidism, nonrheumatic aortic valve stenosis, history of hypertension dyslipidemia prior stroke but no longer taking medications presents with reported gangrenous toes on his right foot unclear exact timeframe his partner at bedside states a couple days they have been black but they appear potentially has been much longer. There is some surrounding erythema. No reports of fevers. No chest pain, no shortness of breath, no nausea or vomiting no other GI or urinary symptoms. There wounds noted on the sacrum region as well. Sounds like wound care has been involved. [facility] has also been involved and there was an APS report for patient's partner. EMS who brought patient also placed an APS report for patient's partner. Patient was agreeable to come to the hospital for evaluation but his partner was not she was not a DPOA or spouse but there was concern that she has been preventing the patient from seeking appropriate medical care. Patient does not answer questions but when partner returned to the room she does not answer the majority of questions for him. Call for patient to come here originated with [facility]. Related Data Home Medications ?Medication ?Instructions ?Recorded ?Confirmed aspirin 325 mg tablet 325 mg PO DAILY 02/23/18 12/16/23 Held on 12/24/23. Instructions: potential GIB Previous Rx's ?Medication ?Instructions ?Recorded Glucose: Test Strips #100 ea 03/02/18 metoprolol tartrate 25 mg tablet 50 mg (2 x 25 mg) PO BID #360 tabs 06/08/23 ensure, low sugar #36 ea 12/16/23 lisinopril 10 mg tablet 10 mg PO DAILY #90 tabs 12/16/23 simvastatin 80 mg tablet See Rx Instructions .Route 12/16/23 .COMPLEX #45 tabs levothyroxine 75 mcg tablet 75 mcg PO QAM #90 tabs 11/15/24 Allergies Allergy/AdvReac Type Severity Reaction Status Date / Time atorvastatin (ATORVASTATIN) Allergy Unknown Verified 12/16/23 14:45 Review of Systems Review of Systems ROS Unobtainable: All systems reviewed & are unremarkable except as noted in HPI and below Patient History Medical History H/O: stroke with residual 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 Self-care deficit for dressing and grooming Self-care deficit for bathing and hygiene Weight loss of more than 10% body weight Frail elderly At high risk for falls Other nursing home (current) drug therapy Cataracts, bilateral Macular degeneration Clavicle fracture Hypothyroidism Arm fracture, right (01/2013) Onychodystrophy Stroke Diabetes Myocardial ischemia (2010) Hyperlipemia Hypertension Peripheral vascular disease (12/2014) Type 2 diabetes mellitus without complication, without long-term current use of insulin (05/15/16) Pure hypercholesterolemia (05/15/16) Acquired hypothyroidism (05/15/16) Essential hypertension (05/15/16) Surgical History History of open reduction and internal fixation (ORIF) procedure Family History Father Hypertension Mother Hypertension Social History household members: significant other Smoking Status: Never smoker alcohol intake: never Smoking Status: Never smoker Exam Narrative Exam Narrative: GEN: Thin ill-appearing male, alert and oriented to self and location, patient appears to be in mild distress. Patient states he was here for a checkup. HEENT: Atraumatic, pupils are equal round reactive to light, extraocular movements are intact, nares are clear, TMs are clear with no fluid, there is no conjunctival pallor. Throat is clear without any exudates, erythema, tonsillar enlargement or uvular deviation HEART: Regular rate and rhythm without murmur, clicks, rubs. No carotid bruits, pulses are equal in upper and lower extremities LUNGS:Lungs clear to auscultation, no wheezes, rales, crackles, chest moves symmetrically ABD:bowel sounds normal, soft, non-tender, no guarding, rebound, rigidity, no masses noted, no hepatosplenomegaly :No CVA tenderness MSCL: Non-tender, muscle atrophy, bilaterally patient does have movement of all 4 extremities but is globally weak. Patient's right foot toes 1 2 and 3 are gangrenous and black, toe for is partially gangrenous on the tibial side ulnar side does have skin tissue intact, 5th toe appears intact with cap refill. There is erythema over the dorsum of the foot extending towards the ankle. Cellulitis does not appear to be extending upwards. No palpable abscess or fluid collection noted. Patient does have some pain but not exquisite. There was no fluid or drainage. Toes appear to be dry without any weeping. He has a small ulcer at the lateral malleolus but unable to visualize any tissue underneath. NEURO:CN 2-12 intact, sensation normal. Initial Vital Signs Initial Vital Signs: Vital Signs Temperature 96.8 F L 12/15/24 11:30 Pulse Rate 101 H 12/15/24 11:30 Respiratory Rate 20 12/15/24 11:30 Blood Pressure 192/88 H 12/15/24 11:30 Pulse Oximetry 100 12/15/24 11:30 Oxygen Delivery Method Room Air 12/15/24 11:30 Course Orders Ordered: ED Orders 12/15/24 12:04 Blood Culture Stat CRP [C-Reactive Protein Quant] Stat Complete Blood Count AUTO DIFF Stat Comprehensive Metabolic Panel Stat ESR [Erythrocyte Sedimentation Rate] Stat Lactate (Lactic Acid) Stat Lipase Stat PTT Partial Thromboplastin Scotty Stat Procalcitonin Stat Prothrombin Time INR Stat 12/15/24 12:08 XR chest 1V Stat EKG-12 Lead Stat RT Consult Eval and Treat NOW 12/15/24 12:09 XR foot RT 2V Stat 12/15/24 13:[address] [facility] - Audience Coordinator Stat 12/15/24 14:28 UA Complete [Urinalysis and Microscopic] Stat 12/15/24 17:09 US arterial duplex LE RT Stat Sodium Chloride (Normal Saline 0.9%) 1,000 mls @ 125 mls/hr IV CONT KAHLIL Last Admin: 12/15/24 13:10 Dose: 125 mls/hr Documented By: ES Ondansetron HCl (Ondansetron 4 Mg/2 Ml Inj) 4 mg IV NOW PRN PRN Reason: Nausea And Vomiting Ondansetron HCl (Ondansetron 4 Mg Odt) 4 mg PO NOW PRN PRN Reason: Nausea And Vomiting Discontinued Medications Sodium Chloride (Normal Saline 0.9%) 1,000 mls @ 1,000 mls/hr IV BOLUS ONE Stop: 12/15/24 13:07 Last Infusion: 12/15/24 13:31 Dose: Infused Documented By: Admin: 12/15/24 12:14 Dose: 1,000 mls/hr Documented By: KSYLA Piperacillin Sod/Tazobactam (Sod 4.5 gm/ Sodium Chloride) 100 mls @ 200 mls/hr IV NOW ONE Stop: 12/15/24 12:59 Last Infusion: 12/15/24 14:56 Dose: Infused Documented By: Admin: 12/15/24 13:10 Dose: 200 mls/hr Documented By: SKYLA Vancomycin HCl/Dextrose (Vancomycin) 1,500 mg in 300 mls @ 200 mls/hr IV NOW ONE Stop: 12/15/24 14:44 Last Admin: 12/15/24 14:02 Dose: 200 mls/hr Documented By: SKYLA Vital Signs Vital signs: Vital Signs - 8 hr 12/15/24 11:30 12/15/24 11:41 12/15/24 11:41 Temperature 96.8 F L Pulse Rate 101 H 83 Respiratory Rate 20 10 L Blood Pressure 192/88 H 115/57 L Pulse Oximetry 100 100 Oxygen Delivery Method Room Air 12/15/24 12:00 12/15/24 12:00 12/15/24 12:30 Temperature Pulse Rate 81 Respiratory Rate 12 Blood Pressure 126/70 109/69 Pulse Oximetry 99 Oxygen Delivery Method 12/15/24 12:30 12/15/24 13:00 12/15/24 13:01 Temperature Pulse Rate 74 78 Respiratory Rate 13 14 Blood Pressure 181/77 H Pulse Oximetry 100 100 Oxygen Delivery Method 12/15/24 13:01 12/15/24 13:30 12/15/24 13:30 Temperature Pulse Rate 74 74 Respiratory Rate 15 Blood Pressure 160/99 H Pulse Oximetry 100 100 Oxygen Delivery Method 12/15/24 14:00 12/15/24 14:01 12/15/24 14:01 Temperature Pulse Rate 75 75 Respiratory Rate 12 Blood Pressure 170/84 H Pulse Oximetry 100 100 Oxygen Delivery Method 12/15/24 14:30 12/15/24 14:30 12/15/24 15:00 Temperature Pulse Rate 76 76 Respiratory Rate 10 L Blood Pressure 145/63 H Pulse Oximetry 100 99 Oxygen Delivery Method 12/15/24 15:00 12/15/24 15:30 12/15/24 15:30 Temperature Pulse Rate 75 Respiratory Rate 10 L Blood Pressure 167/92 H 147/84 H Pulse Oximetry 99 Oxygen Delivery Method 12/15/24 15:31 12/15/24 16:00 12/15/24 16:00 Temperature Pulse Rate 72 79 Respiratory Rate 11 L 12 Blood Pressure 147/84 H 139/67 Pulse Oximetry 98 100 Oxygen Delivery Method 12/15/24 16:30 12/15/24 16:30 12/15/24 17:00 Temperature Pulse Rate 75 76 Respiratory Rate 11 L 11 L Blood Pressure 154/76 H Pulse Oximetry 100 98 Oxygen Delivery Method 12/15/24 17:08 12/15/24 17:08 12/15/24 17:30 Temperature Pulse Rate 71 Respiratory Rate 11 L Blood Pressure 164/95 H 148/63 H Pulse Oximetry 99 Oxygen Delivery Method 12/15/24 17:30 12/15/24 18:00 12/15/24 18:00 Temperature Pulse Rate 80 78 Respiratory Rate 11 L 13 Blood Pressure 150/65 H Pulse Oximetry 100 99 Oxygen Delivery Method 12/15/24 18:30 12/15/24 18:30 Temperature Pulse Rate 71 Respiratory Rate Blood Pressure 146/65 H Pulse Oximetry 97 Oxygen Delivery Method MDM - Wound/Laceration Lab Data 12/15/24 12:04 12/15/24 12:04 Labs: Lab Results 12/15/24 Range/Units 12:04 WBC 9.2 (4.5-11.0) X10^3/uL RBC 4.26 L (4.5-5.9) X10^6/uL Hgb 10.2 L (13.5-17.5) g/dL Hct 31.5 L (41-53) % MCV 73.9 L (80-100) fL MCH 24.1 L (26-34) PG MCHC 32.5 (30-36) % RDW 18.3 H (11.6-14.8) % Plt Count 318 (150-400) X10^3/uL Neut % (Auto) 60.6 (50-75) % Lymph % (Auto) 25.0 (25-40) % [place] % (Auto) 5.3 (3-14) % Eos % (Auto) 7.8 H (2-4) % Baso % (Auto) 1.3 (0-2) % Neut # (Auto) 5600 (9089-5564) /uL Lymph # (Auto) 2300 (0461-8666) /uL [place] # (Auto) 500 (0-900) /uL Eos # (Auto) 700 H (0-450) /uL Baso # (Auto) 100 (0-100) /uL ESR 56 H (0-15) MM/HR PT 12.8 H (9.4-12.5) SECONDS INR 1.1 (0.9-1.3) APTT 34 (25.1-36.5) SECONDS Sodium 132 L (137-145) mmol/L Potassium 4.0 (3.4-5.1) mmol/L Chloride 100 (98-107) mmol/L Carbon Dioxide 26 (22-32) mmol/L BUN 10 (9-20) mg/dL Creatinine 0.51 L (0.66-1.25) mg/dL Estimated GFR > 60 (>60) mL/min BUN/Creatinine Ratio 19.6 (6-22) Glucose 96 (70-99) mg/dL Lactate 1.2 (0.7-2.1) mmol/L Calcium 8.3 L (8.4-10.2) mg/dL Total Bilirubin 0.4 (0.2-1.3) mg/dL AST 23 (17-59) IU/L ALT 17 (<50) IU/L Alkaline Phosphatase 82 (38-126) U/L C-Reactive Protein 2.2 H (<1.0) mg/dL Total Protein 6.9 (6.3-8.2) g/dL Albumin 3.0 L (3.5-5.0) g/dL Globulin 3.9 (1.7-4.1) g/dL Albumin/Globulin Ratio 0.8 L (1.0-2.8) Lipase 145 (23-300) U/L Procalcitonin 0.065 (<0.5) ng/mL ECG Data Attestation: I personally reviewed and interpreted this ECG as follows: Prior ECG tracings: available for review Interpretation: Sinus rhythm with short NJ, rate of 95 NJ 104 QRS of 104 QTC of 497, no acute ST changes patient has some T-wave depression in lateral leads no elevation. Patient was prior from 04/29/2019 does not have T-wave depression in that 1. MDM Narrative Medical decision making narrative: Labs show normal white count hemoglobin of 10.2 microcytic anemia platelets of 318. Coags are negative, sodium is 132 lytes are appropriate creatinine 0.51 glucose of 96 lactate 1.2 LFTs are normal, albumin is low, procalcitonin 0.065 with a lipase of 145, C-reactive protein 2.2. ESR is 56 Foot x-ray shows right foot joint osteoarthritis and osteopenia no acute fracture dislocation, no radiographic evidence of osteomyelitis. Chest x-ray no acute cardiopulmonary change. Patient was covered with Zosyn and vancomycin. RADIOLOGY RESIDENT where there has been referral to APS regarding patient's partner. She was not been able to provide any DPOA paperwork we are seeking other family. Patient is alert aware that he was at the hospital but does not appear to have some cognitive deficits as well. Appears patient's partner has been restricting his access to health care but also does not seem to quite have an understanding of his current medical situation or to be able to understand the risks and benefits of the choices in his medical care. Spoke with orthopedic surgery: Dr. Henriquez @ 1435, after discussion likely would be more than toe amputation potentially mid foot they do not have Podiatry he states would probably require transfer for some more specialized orthopedic or podiatry care that we have available. Spoke with patient @ 1502, patient I reviewed his findings thus far need for amputation possibly mid foot or higher IV antibiotics he was agreeable for hospitalization and even transfer. Did discuss that his partner has a expressed that she would not be okay with this but patient was agreeable. Heavily atherosclerotic plaque throughout with significant stenosis throughout the right lower extremity, scant monophasic is seen throughout. Page out to outside facilities: [facility] Spoke with Dr. Cardenas, orthopedic surgery who would defer this to Podiatry. Spoke with Podiatry Dr. Comer at [facility] he was states they would follow along with the patient would ask that I speak with the hospitalist service. No call back from hospitalist. No bed availability. [place] Spoke with Dr. Jamil, podiatry we would be happy to see patient. Asked that we talked with the hospitalist patient would need a vascular workup but can potentially be done at their facility. Spoke with Dr. Villanueva hospitalist who accepts for transfer. States if transfer as soon could hold off on arterial ultrasound and have performed at their facility. Patient is agreeable to transfer and treatment. Did relay that there has been issues with a partner but they have not presented any DPOA paperwork. Patient has been hemodynamically stable, plan for BLS transport. Discharge Plan Departure Patient Disposition: [facility] Clinical Impression: Gangrene of right foot, Cellulitis of foot, right Prescriptions: No Action aspirin 325 mg tablet 325 mg PO DAILY (DME) Glucose: Test Strips 0 .Route .MEDSUPPLY Qty: 100 3RF Dose Instruction: As directed Rx Instructions: use one touch ultra test strips to test blood sugar twice daily. metoprolol tartrate 25 mg tablet 50 mg PO BID Qty: 360 3RF levothyroxine 75 mcg tablet 75 mcg PO QAM Qty: 90 0RF Rx Instructions: please notify patient, must be seen in office prior to next fill (DME) ensure, low sugar See Rx Instructions .Route .MEDSUPPLY Qty: 36 11RF Rx Instructions: Take 1-2 by mouth per day for nutritional supplement. lisinopril 10 mg tablet 10 mg PO DAILY Qty: 90 3RF Rx Instructions: Take 1 tab daily for hypertension simvastatin 80 mg tablet See Rx Instructions .ROUTE .COMPLEX Qty: 45 3RF Dose Instruction: take 1/2 tablet by mouth at bedtime Rx Instructions: take 1/2 tablet by mouth at bedtime Referrals: Chelita Walsh ARNP [Primary Care Provider, Family Practice]
[2024-12-15] MEDS: SODIUM CHLORIDE 0.9% 1,000 ML 125 ML IV (13:10)
[2024-12-15] MEDS: PIPERACILLIN/TAZO 4.5 GM in SODIUM CHLORIDE 0.9% 100 ML IV (13:10)
[2024-12-15 13:13] LABS: Procalcitonin 0.065 ng/mL (<0.5)
[2024-12-15 13:22] LABS: Erythrocyte Sedimentation Rate 56 MM/HR (0-15)
[2024-12-15 13:39] LABS: C-Reactive Protein Quant 2.2 mg/dL (<1.0)
[2024-12-15] MEDS: VANCOMYCIN 1,500 MG/300 ML PIGGYBACK 200 MG IV (14:02)
--- NOTE | 2024-12-15 17:09 | DI.US.S_ITS ---
PROCEDURE: US ARTERIAL DUPLEX LE RT INDICATIONS: R foot gangrene TECHNIQUE: Color and pulse Doppler interrogation was performed of the right lower extremity arterial system, with image documentation. COMPARISON: None. FINDINGS: Common femoral artery: 9 cm/sec, with monophasic flow. Deep femoral artery: Not seen Proximal superficial femoral artery: 35 cm/sec, with monophasic flow. Mid superficial femoral artery: 40 cm/sec, with monophasic flow. Distal superficial femoral artery: 12 cm/sec, with monophasic flow. Popliteal artery: 20 cm/sec, with monophasic flow. Posterior tibial artery: 12 cm/sec, with monophasic flow. Anterior tibial artery/dorsalis pedis: 8 cm/sec, with monophasic flow. Marin-scale imaging description: Heavy atherosclerotic plaques throughout. IMPRESSION: Heavy atherosclerotic plaques throughout with significant stenosis throughout the right lower extremity. Scant monophasic flow is seen throughout. Dictated by: Saúl Campbell M.D. on 12/15/2024 at 17:18 Approved by: Saúl Campbell M.D. on 12/15/2024 at 17:19
--- NOTE | 2024-12-15 17:32 | CM.SWNOTE ---
Addendum entered by Martha Batista 12/15/24 18:00: It is reported that patient has been accepted at [facility]. DIRECTOR LIFE SALES calls patient's s/o and informs her of this. DIRECTOR LIFE SALES calls [facility] manager grocery as well and leaves . Martha Batista, [facility] Original Note: ED DIRECTOR LIFE SALES Note Patient is 84 y/o male who presents to ED via EMS due to concern for gangrene toes. It is reported that patient's [facility] biomass power plant manager called [phone] out of concerns for patient's need for medical attention. Patient's s/o caregiver was hesitant to send patient to the ED but patient agreed to come. There is a current APS investigation made by [facility] manager grocery and EMS reports plans to make another APS report today. Patient's PCP is Dr. Sweeney, patient has not been to a PCP appt in a year, Appt is scheduled for 01/03/25. patient has Medicare, pending Medicaid [employer] and Medicare savings plan insurance. Patient has hx of hypothyroidism, nonrheumatic aortic valve stenosis, history of hypertension dyslipidemia prior stroke but no longer taking medications. DIRECTOR LIFE SALES calls Delmi Reyes [facility] biomass power plant manager (Ph. # [phone]) It is reported that she just started services with patient last week, it is reported that the [facility] assisted with initiating Medicaid LTC referral. It is reported that Delmi did an assessment at the home on 12/02/24 and made an APS report. It is reported that patient does not have a DPOA and potentially needs a guardian. It is reported that patient is in need of skilled services such as PT, OT or Hospice depending on plan of care. It is reported that patient's preference is to be at home and not at a LTC facility. Delmi reports that she scheduled a PCP appt with Dr. Sweeney for 01/03/25. Delmi reports that the assigned APS manager grocery is Nelida Jenkins (Ph. # [phone]). There is reported concern that patient's S/O has been a barrier of patient accessing medical care. It is reported that patient has a sister named Sugar and she may be patient's DPOA. DIRECTOR [employer] SALES calls patient's sister based on phone number provided by s/o. (ph. # [phone]). DIRECTOR LIFE SALES leaves and requests return call. Patient resides in [place] with S/O, patient is dependent on S/O for caregiving needs. Patient had recent referral for [facility] last year. Patient has limited mobility and has not been able to get into vehicles for transport lately. ED provider consults with orthopedic surgeon and it is reported that patient is in need of higher level of care to access podiatry and orthopedic surgery. SIMULATION ENGINEER is currently seeking higher level of care placement. Patient and s/o indicate agreement and understanding of this plan. DIRECTOR LIFE SALES calls APS manager grocery Nelida and leaves regarding patient's presentation in the ED and pending plan of care. Plan: Patient is awaiting transfer of accepting higher level of care hospital to address podiatry surgical needs. Martha Batista, IV THERAPY NURSE
== END 2024-12-15 19:26 | disposition short-term general hospital (02) ==
PROVIDERS: Emergency Provider Emergency Medicine; PCP Nurse Practitioner
DX: L03.115 Cellulitis of right lower limb (principal); I96 Gangrene, not elsewhere classified
CPT/HCPCS: 36415; 71045; 73620; 80053; 83605; 83690; 84145; 85025; 85610; 85651; 85730; 86140; 87040; 93005; 93926; 96361; 96365; 96366; 96367; 99284; J2543